=== PATIENT | female | born 1955 | race Caucasian/White ===

== ENCOUNTER 2025-11-06 20:34 | Inpatient (IN) | payer MEDICARE, OTHER ==
[~2025-11-06] VITALS: Ht 162.6 cm; Wt 99.9 kg
--- NOTE | 2025-11-06 20:51 | ECG ---
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
[2025-11-06 22:32] LABS: Nucleated Red Blood Cells % 0.1 %
[2025-11-06 22:34] LABS: Hematocrit 41.1 % (36.0-46.0); Hemoglobin 14.1 g/dL (12.2-16.2); Mean Corpuscular Hemoglobin 33.3 pg (28.0-32.0); Mean Corpuscular Volume 97.0 fL (80.0-100.0)
[2025-11-06 22:48] LABS: INR 1.03 (0.9-1.15); Partial Thromboplastin Time 22.8 SEC (24.5-34.5); Prothrombin Time 10.9 sec (9.3-11.8)
[2025-11-06 23:06] LABS: Alanine Aminotransferase 29 U/L (7-40); Albumin 4.2 g/dL (3.2-4.8); Alkaline Phosphatase 82 U/L (46-116); Anion Gap 9 (5-15); BUN/Creatinine Ratio 14.1 (10.0-20.0); Bilirubin, Total 0.4 mg/dL (0.2-1.0); Blood Urea Nitrogen 13 mg/dL (9-23); Calcium 9.7 mg/dL (8.7-10.4); Carbon Dioxide 26 mmol/L (20-31); Glucose 97 mg/dL (74-106); Magnesium 2.1 mg/dL (1.6-2.6); Potassium 4.1 mmol/L (3.5-5.1); Sodium 144 mmol/L (136-145); Total Protein 7.1 g/dL (5.7-8.2)
--- NOTE | 2025-11-06 23:10 | DVH ---
CT STROKE CTH INDICATION: Right lower extremity weakness EXAM DATE: 11/06/2025 10:17 PM COMPARISON: None TECHNIQUE: CT of the head without intravenous contrast. RADIATION DOSE: CTDIvol: 55.68 mGy, DLP: 986.02 mGy*cm FINDINGS: There is no evidence of acute intracranial hemorrhage, extra-axial collection, mass effect, midline shift, herniation or hydrocephalus. The ventricles, sulci and cisterns are age appropriate. The malik-white differentiation is intact. The visualized paranasal sinuses and mastoid air cells are clear. There is no evidence of skull fracture. The surrounding soft tissues and osseous structures are unremarkable. IMPRESSION: No evidence of acute intracranial hemorrhage, mass effect, hydrocephalus or skull fracture.
[2025-11-06 23:14] LABS: Chloride 109 mmol/L (98-107)
--- NOTE | 2025-11-06 23:24 | DVH ---
Right Lower Extremity Arterial Duplex CLINICAL HISTORY: loss of sensation, cold right foot COMPARISON: None TECHNIQUE: Duplex Doppler evaluation including color Doppler and spectral/pulsed waveform analysis of the right lower extremity arteries was performed. FINDINGS: RIGHT: Peak systolic velocities are as follows: TANK CAR CLEANER 81 cm/s Deep femoral 57 cm/s SFA proximal 97 cm/s SFA mid-portion 92 cm/s SFA distal 91 cm/s Popliteal 66 cm/s Posterior tibial 73 cm/s Anterior tibial 62 cm/s Dorsalis pedis 62 cm/s The waveforms are triphasic with diastolic flow apart from the posterior tibial and distal dorsalis pedis which are biphasic. IMPRESSION: No hemodynamically significant stenosis based on peak systolic velocity criteria. REFERENCE VALUES, [facility] vascular Imaging Lab Criteria: Peak systolic velocity ranges (in cm/sec) are as follows: <150 cm/s - <20 % stenosis 150-200 cm/s - 20-49% stenosis 200-300 cm/s - 50-75% stenosis >300 cm/s -> 75% stenosis
--- NOTE | 2025-11-07 03:37 | ED.PDOC ---
History of Present Illness HPI Comments This is a 70 year-old female who presents to the ED via EMS with a chief complaint of loss of feeling in R lower extremity S/P fall at 0600 this morning. Patient reports feeling dizzy, when she fell, landed on both knees, and bent the right leg all the way backwards. Patient is unable to lift the R leg and unable to ambulate at this time. There are no further complaints or modifying factors, all vitals are stable. REVIEW OF SYSTEMS: General: No fever, no chills, or fatigue HEENT: No sore throat, no earache, no congestion, no neck pain. Cardiac: No chest pain. No palpitations. Lungs: No shortness of breath, no cough. GI: No nausea, no vomiting, no diarrhea, no constipation, no abdominal pain : No dysuria, frequency, or urgency. No hematuria. Musculoskeletal: (+) loss of feeling in R lower extremity. Skin: No rash, no itching. Neuro: No headache, no dizziness, no weakness (And as sated in HPI) PHYSICAL EXAM: General: Awake, alert and oriented. No acute distress. Skin: Skin in warm, dry and intact. Appropriate color for ethnicity. HEENT: The head is normocephalic and atraumatic. Conjunctivae are clear without exudates or hemorrhage. Sclera is non-icteric. Eyelids are normal in appearance without swelling or lesions. Oral mucosa is pink and moist Neck: The neck is supple with normal range of motion. No JVD. Cardiac: Heart rate and rhythm are normal. No murmurs, gallops, or rubs are auscultated. Respiratory: No signs of respiratory distress. Lung sounds are clear in all lobes bilaterally without rales, rhonchi, or wheezes. Abdominal: Abdomen is soft, non-tender without distention, guarding or rigidity. Bowel sounds are present and normoactive in all four quadrants. Extremities: R lower extremity weakness, sensation intact, R foot cool to tough, normal capillary refill Neurological: The patient is awake, alert and oriented to person, place, and time with normal speech. Speech is clear. There is no facial asymmetry. Psychiatric: Appropriate mood and affect. Good judgement and insight. Chief Complaint: Fall Injury Time Seen by MD: 21:00 Reviewed Notes: Medications, Allergies Allergies: Coded Allergies: [place] Oil (Verified Allergy, Unknown, 11/06/25) Avocado (Verified Allergy, Unknown, 11/06/25) Banana (Verified Allergy, Unknown, 11/06/25) Information Source: Patient Mode of Arrival: EMS Severity: Moderate Duration: Since onset Past Medical History PAST MEDICAL HISTORY: Denies Surgical History: Denies all surgeries PRESCHOOL ASSISTANT History: No Pertinent PRESCHOOL ASSISTANT History Social History Smoker: Non-Smoker Alcohol: Denies ETOH Use Drugs: Denies Drug Use Was a procedure done? Was a procedure done?: No EKG EKG : Pulse Rate (adult): 67 Cardiac Rhythm: NSR Comments Borderline prolonged [place] interval Left anterior fascicular block Low voltage, precordial leads Abnormal R-wave progression, early transition Differential Dx Considerations may include: Differential diagnoses considered include critical limb ischemia, CVA, spinal cord injury, nerve injury, cauda equina syndrome, other traumatic injury, other neurologic disorder, other. X-Ray, Labs, Meds, VS Vital Signs Date Time Temp Pulse Resp B/P (MAP) Pulse Ox O2 Delivery O2 Flow Rate FiO2 11/07/25 03:40 67 11/07/25 01:38 97.8 77 16 126/78 (94) 95 97.8 11/06/25 20:46 67 11/06/25 20:43 98.2 72 18 120/91 72 98.2 Lab Test 11/06/25 22:11 Range/Units White Blood Count 11.0 H 4.4-10.8 10^3/uL Red Blood Count 4.23 4.0-5.20 10^6/uL Hemoglobin 14.1 12.2-16.2 g/dL Hematocrit 41.1 36.0-46.0 % Mean Corpuscular Volume 97.0 80.0-100.0 fL Mean Corpuscular Hemoglobin 33.3 H 28.0-32.0 pg Mean Corpuscular Hemoglobin Concent 34.4 32.0-36.0 g/dL Red Cell Distribution Width 13.7 11.8-14.3 % Platelet Count 245 140-450 10^3/uL Mean Platelet Volume 7.5 6.9-10.8 fL Neutrophils (%) (Auto) 62.1 37.0-80.0 % Lymphocytes (%) (Auto) 25.9 10.0-50.0 % Monocytes (%) (Auto) 9.6 0.0-12.0 % Eosinophils (%) (Auto) 2.0 0.0-7.0 % Basophils (%) (Auto) 0.4 0.0-2.0 % Neutrophils # (Auto) 6.9 1.6-8.6 10 ^3/uL Lymphocytes # (Auto) 2.9 0.4-5.4 10 ^3/uL Monocytes # (Auto) 1.1 0-1.3 10 ^3/uL Eosinophils # (Auto) 0.2 0-0.8 10 ^3/uL Basophils # (Auto) 0 0-0.2 10 ^3/uL Nucleated Red Blood Cells 0.1 % Prothrombin Time 10.9 9.3-11.8 sec Prothrombin Time INR 1.03 0.9-1.15 Activated Partial Thromboplast Time 22.8 L 24.5-34.5 SEC Sodium Level 144 136-145 mmol/L Potassium Level 4.1 3.5-5.1 mmol/L Chloride Level 109 H 98-107 mmol/L Carbon Dioxide Level 26 20-31 mmol/L Anion Gap 9 5-15 Blood Urea Nitrogen 13 9-23 mg/dL Creatinine 0.92 0.550-1.02 mg/dL Glomerular Filtration Rate Calc 67 >90 mL/min BUN/Creatinine Ratio 14.1 10.0-20.0 Serum Glucose 97 74-106 mg/dL Calcium Level 9.7 8.7-10.4 mg/dL Magnesium Level 2.1 1.6-2.6 mg/dL Total Bilirubin 0.4 0.2-1.0 mg/dL Aspartate Amino Transferase (AST) 40 13-40 U/L Alanine Aminotransferase (ALT) 29 7-40 U/L Alkaline Phosphatase 82 46-116 U/L Troponin I High Sensitivity 6 </=34 ng/L B-Type Natriuretic Peptide 98.04 0-100 pg/mL Total Protein 7.1 5.7-8.2 g/dL Albumin 4.2 3.2-4.8 g/dL ORDERING PHYSICIAN: HILARY ROGERS MD PROCEDURE(s): CTH - STROKE CTH REASON: Right lower extremity weakness ORDER NUMBER(s): [id number], ACCESSION NUMBER(s): [id number] CT STROKE CTH INDICATION: Right lower extremity weakness EXAM DATE: 11/06/2025 10:17 PM COMPARISON: None TECHNIQUE: CT of the head without intravenous contrast. RADIATION DOSE: CTDIvol: 55.68 mGy, DLP: 986.02 mGy*cm FINDINGS: There is no evidence of acute intracranial hemorrhage, extra-axial collection, mass effect, midline shift, herniation or hydrocephalus. The ventricles, sulci and cisterns are age appropriate. The malik-white differentiation is intact. The visualized paranasal sinuses and mastoid air cells are clear. There is no evidence of skull fracture. The surrounding soft tissues and osseous structures are unremarkable. IMPRESSION: No evidence of acute intracranial hemorrhage, mass effect, hydrocephalus or skull fracture. RING PHYSICIAN: HILARY ROGERS MD PROCEDURE(s): RLEAD - Rt Low Ext Art Duplex REASON: loss of sensation, cold right foot ORDER NUMBER(s): [id number], ACCESSION NUMBER(s): [id number] Right Lower Extremity Arterial Duplex CLINICAL HISTORY: loss of sensation, cold right foot COMPARISON: None TECHNIQUE: Duplex Doppler evaluation including color Doppler and spectral/pulsed waveform analysis of the right lower extremity arteries was performed. 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 IMPRESSION: No hemodynamically significant stenosis based on peak systolic velocity criteria. REFERENCE VALUES, [facility] ([facility]) vascular Imaging Lab Criteria: Peak systolic velocity ranges (in cm/sec) are as follows: <150 cm/s - <20 % stenosis 150-200 cm/s - 20-49% stenosis 200-300 cm/s - 50-75% stenosis >300 cm/s -> 75% stenosis Time of 1ST Reevaluation: 03:37 Reevaluation 1ST: Unchanged Patient Education/Counseling: Other, Pt Unresponsive (Need for admission) Family Education/Counseling: No Family Present SEPSIS Sepsis Screen Date sepsis recognized/suspect: Nov 06, 2025 Time Sepsis recognized/suspect: 2046 Recent Procedure: No On Antibiotic Therapy: No Respiratory Rate >20: No Heart Rate >90: No Temp<36 C (96.8 F) or >38.3 C: No SBP <90 or MAP <65 mmHG: No New Acute Mental Status Change: No Is the patient on CPAP, BIPAP,: No Physician Orders Vital Signs .PER UNIT PROTOCOL (11/06/25 21:53) Vp Software Engineering (11/06/25 21:53) Accurate Weight In Kg (11/06/25 21:53) Electrocardigram (11/06/25 21:53) Accucheck (11/06/25 21:53) Ct Head Cva (11/06/25 21:53) * Neurology Consult (11/06/25 21:53) 2 Large Bore Ivs (20mg Or Larg (11/06/25 21:53) Neuro Checks Per Unit Protocol (11/06/25 21:53) Rt Low Ext Art Duplex (11/06/25 22:00) Vital Signs Date Time Temp Pulse Resp B/P (MAP) Pulse Ox O2 Delivery O2 Flow Rate FiO2 11/07/25 03:40 67 11/07/25 01:38 97.8 77 16 126/78 (94) 95 97.8 11/06/25 20:46 67 11/06/25 20:43 98.2 72 18 120/91 72 98.2 Laboratory Tests Test 11/06/25 22:11 White Blood Count 11.0 10^3/uL (4.4-10.8) H Departure 1 Departure Time of Disposition: 02:00 Impression: Primary Impression: Right leg weakness Disposition: ADMITTED INPATIENT Condition: Stable Comments 70-year-old female with significant right lower extremity weakness with preservation of sensation onset 6:00 a.m. in the morning. No other neuro deficit CT head negative for acute CVA or bleed. Arterial Doppler right lower extremity negative for hemodynamically significant stenosis. Patient admitted to hospitalist service for further treatment, evaluation and monitoring. Critical Care Note Critical Care Time?: No Stability Stability form required: No Heart Score Heart Score: Heart Score Response (Comments) Value History N/A 0 EKG N/A 0 Age N/A 0 Risk Factors N/A 0 Troponin N/A 0 Total 0 I personally scribed for HILARY ROGERS MD ([email or web address]) on 11/07/25 at 03:37. Electronically submitted by Rolanda Torres ([email or web address]). I personally scribed for HILARY ROGERS MD ([email or web address]) on 11/07/25 at 03:40. Electronically submitted by Rolanda Torres (Analiza). I personally scribed for HILARY ROGERS MD ([email or web address]) on 11/07/25 at 03:47. Electronically submitted by Rolanda Torres ([email or web address]). HILARY ROGERS MD Nov 07, 2025 03:37
--- NOTE | 2025-11-07 05:38 | DVHHPRES ---
History of Present Illness Resident Creating Document: KARI BRICE RESIDENT History of Present Illness Patient is a 70-year-old female with past medical history of hypertension, hyperlipidemia, anxiety, essential tremor who came to the ED status post fall at 6:00 a.m. in the morning. patient states that she woke up in the morning got out of bed and as soon as she got up she felt dizzy and fell down on her knees, tried to get up but had right leg weakness, numbness, pain which was 10/10 in intensity, in her right knee. Patient denies any fever, chills, nausea, vomiting, diarrhea. Patient denies any head trauma, loss of consciousness. PMHx:hypertension, hyperlipidemia, anxiety, essential tremor PSHx: Right ankle surgery Family history: reviewed, noncontributory Social history: ex-smoker, drinks occasionally, denies drug use Home medication: losartan, venlafaxine, atorvastatin, gabapentin, propranolol Allergic history: denies PCP: Dr. Gordillo Patient seen in the [facility]. Patient at this time complains of 7/10 right knee pain. Patient states that she has numbness in the right ankle and foot. Review of Systems Constitutional: No: Fever, Chills, Sweats, Weakness, Malaise, Other Eyes: No: Pain, Vision change, Conjunctivae inflammation, Eyelid inflammation, Other, Redness ENT: No: Ear pain, Ear discharge, Nose pain, Nose discharge, Nose congestion, Mouth pain, Mouth swelling, Throat pain, Throat swelling, Other Respiratory: No: Cough, Dry, Shortness of breath, SOB with excertion, Wheezing, Hemoptysis, Pleuritic Pain, Sputum, Wheezing, Other Cardiovascular: No: Chest Pain, Palpitations, Orthopnea, Paroxysmal Noc. Dyspnea, Edema, Lt Headedness, Other Gastrointestinal: No: Nausea, Vomiting, Abdominal Pain, Diarrhea, Constipation, Melena, Hematochezia, Other Genitourinary: No Dysuria, No Frequency, No Incontinence, No Hematuria, No Retention, No Other Musculoskeletal: leg pain, foot pain; No: other, neck pain, shoulder pain, arm pain, back pain, hand pain Skin: No: Rash, Lesions, Jaundice, Bruising, Other Neurological: Weakness, Numbness Allergies: Coded Allergies: [place] Oil (Verified Allergy, Unknown, 11/06/25) Avocado (Verified Allergy, Unknown, 11/06/25) Banana (Verified Allergy, Unknown, 11/06/25) Exam Vital Signs Vital Signs Date Time Temp Pulse Resp B/P (MAP) Pulse Ox O2 Delivery O2 Flow Rate FiO2 11/07/25 03:40 67 11/07/25 01:38 97.8 16 126/78 (94) 95 97.8 Exam General: Patient alert and oriented in person, place and time. Patient following commands. In moderate distress HEENT: Normocephalic, atraumatic, moist mucous membranes Respiratory/pulmonary: Clear lungs bilaterally, vesicular murmurs present in almost all lung stone, no associated crackles or wheezes. Cardiovascular: Normal heart sounds S1 and S2 with no associated murmurs Abdomen: Abdomen nondistended, there is no pain to palpation in any of the abdominal quadrants, no palpable masses. Extremities: right leg weakness, right foot numbness. Peripheral Pulses: 3+ Radial (R). 3+ Radial (L). 3+ Dorsalis pedis (R). 3+ Dorsalis pedis(L) Skin: No rashes or pruritus, there is no sacral edema present at this time. Neurological: Intact cranial nerves with no focal neurologic deficits Labs/Xrays Labs Test 11/06/25 22:11 Range/Units White Blood Count 11.0 H 4.4-10.8 10^3/uL Red Blood Count 4.23 4.0-5.20 10^6/uL Hemoglobin 14.1 12.2-16.2 g/dL Hematocrit 41.1 36.0-46.0 % Mean Corpuscular Volume 97.0 80.0-100.0 fL Mean Corpuscular Hemoglobin 33.3 H 28.0-32.0 pg Mean Corpuscular Hemoglobin Concent 34.4 32.0-36.0 g/dL Red Cell Distribution Width 13.7 11.8-14.3 % Platelet Count 245 140-450 10^3/uL Mean Platelet Volume 7.5 6.9-10.8 fL Neutrophils (%) (Auto) 62.1 37.0-80.0 % Lymphocytes (%) (Auto) 25.9 10.0-50.0 % Monocytes (%) (Auto) 9.6 0.0-12.0 % Eosinophils (%) (Auto) 2.0 0.0-7.0 % Basophils (%) (Auto) 0.4 0.0-2.0 % Neutrophils # (Auto) 6.9 1.6-8.6 10 ^3/uL Lymphocytes # (Auto) 2.9 0.4-5.4 10 ^3/uL Monocytes # (Auto) 1.1 0-1.3 10 ^3/uL Eosinophils # (Auto) 0.2 0-0.8 10 ^3/uL Basophils # (Auto) 0 0-0.2 10 ^3/uL Nucleated Red Blood Cells 0.1 % Prothrombin Time 10.9 9.3-11.8 sec Prothrombin Time INR 1.03 0.9-1.15 Activated Partial Thromboplast Time 22.8 L 24.5-34.5 SEC Sodium Level 144 136-145 mmol/L Potassium Level 4.1 3.5-5.1 mmol/L Chloride Level 109 H 98-107 mmol/L Carbon Dioxide Level 26 20-31 mmol/L Anion Gap 9 5-15 Blood Urea Nitrogen 13 9-23 mg/dL Creatinine 0.92 0.550-1.02 mg/dL Glomerular Filtration Rate Calc 67 >90 mL/min BUN/Creatinine Ratio 14.1 10.0-20.0 Serum Glucose 97 74-106 mg/dL Calcium Level 9.7 8.7-10.4 mg/dL Magnesium Level 2.1 1.6-2.6 mg/dL Total Bilirubin 0.4 0.2-1.0 mg/dL Aspartate Amino Transferase (AST) 40 13-40 U/L Alanine Aminotransferase (ALT) 29 7-40 U/L Alkaline Phosphatase 82 46-116 U/L Troponin I High Sensitivity 6 </=34 ng/L B-Type Natriuretic Peptide 98.04 0-100 pg/mL Total Protein 7.1 5.7-8.2 g/dL Albumin 4.2 3.2-4.8 g/dL SEPSIS Sepsis Screen Date sepsis recognized/suspect: Nov 06, 2025 Time Sepsis recognized/suspect: 2046 Recent Procedure: No On Antibiotic Therapy: No Respiratory Rate >20: No Heart Rate >90: No Temp<36 C (96.8 F) or >38.3 C: No SBP <90 or MAP <65 mmHG: No New Acute Mental Status Change: No Is the patient on CPAP, BIPAP,: No Physician Orders Vital Signs .PER UNIT PROTOCOL (11/06/25 21:53) General Helper (11/06/25 21:53) Accurate Weight In Kg (11/06/25 21:53) Electrocardigram (11/06/25 21:53) Accucheck (11/06/25 21:53) Ct Head Cva (11/06/25 21:53) * Neurology Consult (11/06/25 21:53) 2 Large Bore Ivs (20mg Or Larg (11/06/25 21:53) Neuro Checks Per Unit Protocol (11/06/25 21:53) Rt Low Ext Art Duplex (11/06/25 22:00) Angio Head/Neck (11/07/25 04:10) Vital Signs Date Time Temp Pulse Resp B/P (MAP) Pulse Ox O2 Delivery O2 Flow Rate FiO2 11/07/25 03:40 67 11/07/25 01:38 97.8 77 16 126/78 (94) 95 97.8 Laboratory Tests Test 11/06/25 22:11 White Blood Count 11.0 10^3/uL (4.4-10.8) H Assessment/Plan Assessment/Plan Presyncope likely due to orthostatic hypotension Status post mechanical fall Right extremity weakness, right foot numbness Rule out stroke CT angio neck Head CT showed no acute abnormality Arterial duplex showed normal flow Check right knee x-ray Check echo Orthostatic vitals Neurology consult placed Pain management Hypertension Continue home meds Hyperlipidemia Atorvastatin Anxiety/depression Continue home meds Essential tremor Continue propranolol Obesity BMI 35.9 Patient counseled on diet, exercise, lifestyle modification for 18 minutes DVT prophylaxis: Lovenox Goals of care addressed with the patient for more than 27 minutes: Full code status Case discussed with Dr. Kwong , patient and nurse attestation pt found to have PE, started on anticoag, POCUS done, in chart Plan discussed with: Patient Visit Coding STANDARD RES Billing Provider: CAROLINE KWONG MD Date of Service if different f: Nov 07, 2025 Common Visit Codes: [id number] CARE 30-74 MIN (crit care time 50 minutes) KARI BRICE Nov 07, 2025 05:38 CAROLINE KWONG MD Nov 07, 2025 14:51
[2025-11-07] MEDS: MORPHINE SULFATE INJ 2 MG/ml SYRG IV ONE (06:00)
[2025-11-07] MEDS: ENOXAPARIN SOD 40 MG/0.4 ML SYRINGE SC SCH (06:01)
[2025-11-07] MEDS: MORPHINE SULFATE 4 MG/ML SYR/VIAL ONE (06:01)
[2025-11-07] MEDS: IOHEXOL 350 MG/ML 100ML IJ ONE (06:15)
[2025-11-07 07:21] LABS: Chloride 105 mmol/L (98-107); Potassium 4.2 mmol/L (3.5-5.1); Sodium 140 mmol/L (136-145)
[2025-11-07 07:22] LABS: Anion Gap 10 (5-15); Carbon Dioxide 25 mmol/L (20-31)
[2025-11-07 07:23] LABS: Calcium 9.2 mg/dL (8.7-10.4)
[2025-11-07 07:28] LABS: BUN/Creatinine Ratio 28.3 (10.0-20.0); Blood Urea Nitrogen 26 mg/dL (9-23); Glucose 105 mg/dL (74-106); Hematocrit 41.4 % (36.0-46.0); Hemoglobin 14.1 g/dL (12.2-16.2); Mean Corpuscular Hemoglobin 33.3 pg (28.0-32.0); Mean Corpuscular Volume 97.8 fL (80.0-100.0); Nucleated Red Blood Cells % 0.1 %
--- NOTE | 2025-11-07 07:33 | DVH ---
CLINICAL INFORMATION: Right lower extremity weakness. TECHNIQUE: Axial CTA images of the head and neck were obtained after the uneventful administration of 100 mL Omnipaque 350 IV contrast. Coronal and sagittal reformatted images and MIP images were obtained, reviewed, and stored. Measurements of carotid stenosis are made per NASCET criteria. All CT scans at this medical facility are performed using dose modulation techniques as appropriate to a performed exam including the following: Automated exposure control was utilized; adjustment of the MA and/or KV according to patient size; and use of iterative reconstruction technique. CTDIvol = 25.88 mGy DLP = 846.48 mGy-cm COMPARISON: None FINDINGS: CTA HEAD: Posterior cerebral arteries, basilar artery, and intracranial segments of the distal vertebral arteries are normal in caliber and course with no evidence of aneurysm, large vessel occlusion, significant stenosis, or vascular malformation. The anterior and middle cerebral arteries and intracranial segments of the distal internal carotid arteries are normal in caliber and course with no evidence of aneurysm, large vessel occlusion, significant stenosis, or vascular malformation. CTA NECK: Normal configuration of the aortic arch with patent origins of the brachiocephalic artery, left common carotid artery, and left subclavian artery. Subclavian arteries are patent with no significant stenosis. Mild calcified plaque at the right carotid bifurcation without significant stenosis. The bilateral common carotid, internal carotid, and external carotid arteries are otherwise patent with no significant stenosis or evidence of dissection. Vertebral arteries are patent with no significant stenosis or evidence of dissection. The main pulmonary artery and right and left pulmonary arteries are visualized within the [id number] of the exam. There are filling defects at the distal aspects of the right main pulmonary artery and visualized portions of the proximal lobar branches and in the left interlobar artery extending into the left lower lobe and lingular branches as well as in the left upper lobar pulmonary artery. Degenerative disc disease throughout the cervical spine with multilevel moderate to severe disc space narrowing, endplate sclerosis, and endplate spurring. IMPRESSION: 1. CTA head demonstrates no evidence of large vessel occlusion, aneurysm, or significant stenosis. 2. CTA neck demonstrates no evidence of carotid or vertebral dissection or significant stenosis. 3. Visualized portions of the pulmonary arteries demonstrate acute pulmonary bilateral pulmonary emboli involving the distal right main pulmonary artery and extending into the visualized proximal lobar branches and in the left interlobar artery extending into the lingular and lower lobar branches, as well as pulmonary emboli in the visualized portions of the left upper lobar pulmonary artery. Unable to evaluate for right heart strain within the field of view of this exam. 4. Additional findings as detailed above. The [facility] radiology call center was contacted to facilitate reporting of the critical finding of bilateral pulmonary emboli at 9:30 a.m. FRAME POLISHER on 11/07/2025. The report will be submitted pending discussion of the critical findings with the ordering physician.
[2025-11-07 08:00] VITALS: PULSE 87; RESP 17; O2SAT 97
--- NOTE | 2025-11-07 09:20 | DVH ---
EXAM: XY R KNEE 2V XRAY CLINICAL INDICATION: s/p fall TECHNIQUE: XY R KNEE 2V XRAY COMPARISON: None FINDINGS/IMPRESSION: There is no evidence of acute fracture or dislocation. Advanced right knee authorities. The alignment is anatomical. There is no radiopaque foreign body.
--- NOTE | 2025-11-07 09:45 | DVHINCON2 ---
Date of service: Nov 07, [address] Solano Reason for Consultation Right lower extremity weakness History of Present Illness Ms. Jackson is a 70 years old right-handed female with a history of dyslipidemia, obesity, she came to the [facility] on 11/06/2025 with a chief complaint of right leg weakness. At this time, she is alert and fully oriented, she provided the following history When she woke up flush tester on 10/27/25 for bathroom, she fell down when she was trying to get off bed, and noticed that she could not move the right leg at all, she also had pain in the right leg, mild pain in the right arm (she suspected secondary to fall). Otherwise she reports no chest pain, headache, vision changes or confusion In the hospital, her CTA head and neck showed evidence of pulmonary emboli She snores, but not loud, her sleep is refreshing, she denies excessive daytime sleepiness or fatigue For three months, she has left-handed tremor when she is eating or working with a hand, she had seen a neurologist, and she was given propranolol with good results WBC/HB/PLT/MCV, 11/07/2025: 12.4/14.1/237/97.8 BMP 11/06/2025: Unremarkable Liver function tests, 11/06/2025: Unremarkable Extremity venous study, 11/06/2025: No hemodynamically significant stenosis based on peak systolic velocity criteria. CT head, 11/06/2025: No evidence of acute intracranial hemorrhage, mass effect, hydrocephalus or skull fracture CTA head, neck, 11/07/2025: 1. CTA head demonstrates no evidence of large vessel occlusion, aneurysm, or significant stenosis. 2. CTA neck demonstrates no evidence of carotid or vertebral dissection or significant stenosis. 3. Visualized portions of the pulmonary arteries demonstrate acute pulmonary bilateral pulmonary emboli involving the distal right main pulmonary artery and extending into the visualized proximal lobar branches and in the left interlobar artery extending into the lingular and lower lobar branches, as well as pulmonary emboli in the visualized portions of the left upper lobar pulmonary artery. Unable to evaluate for right heart strain within the field of view of this exam. 4. Additional findings as detailed above Past Medical History Dyslipidemia, obesity Past Surgical History , left ankle fracture repair Family History Hypertension, breast cancer, multiple sclerosis Social History She was a tobacco smoker, but denies a history of drug/alcohol abuse Allergies: Coded Allergies: [place] Oil (Verified Allergy, Unknown, 11/06/25) Avocado (Verified Allergy, Unknown, 11/06/25) Banana (Verified Allergy, Unknown, 11/06/25) Current Medications Current Medications Medications (Trade) Dose Ordered Sig/Pao Route PRN Reason Start Time Stop Time Status Last Admin Acetaminophen (Tylenol Tablet) 650 mg Q6HP PRN PO PAIN SCALE 1-3 OR TEMP>100.4 11/07/25 05:45 Enoxaparin Sodium (Lovenox) 40 mg DAILY SC 11/07/25 05:45 11/07/25 08:42 DC 11/07/25 06:01 Acetaminophen/ Hydrocodone Bitart ([place] 5/325MG Tab) 1 tab Q6HPRN PRN PO MODERATE PAIN (4-6 PAIN SCALE) 11/07/25 06:45 Acetaminophen (Tylenol Tablet) 650 mg Q6HR PO 11/07/25 12:00 Future Hold Heparin Sodium/ Dextrose 250 ml @ 20 mls/hr [id number] IV 11/07/25 16:00 11/07/25 09:11 DC Enoxaparin Sodium (Lovenox) 100 mg Q12HR SC 11/07/25 22:00 Review of Systems As above, the other systems are negative Vital Signs Vital Signs Date Time Temp Pulse Resp B/P (MAP) Pulse Ox O2 Delivery O2 Flow Rate FiO2 11/07/25 09:05 87 17 116/72 11/07/25 08:00 97 Nasal Cannula* 4 36 11/07/25 05:57 97.8 97.8 Physical Exam GENERAL EXAM: General: the patient is well developed and nourished. No acute distress. HEENT: Normocephalic, neck is supple, no carotid bruits. No mass. RESPIRATORY: Normal respiratory effort with symmetrical lung expansion. Lungs clear to auscultation. CARDIOVASCULAR: Regular rate and rhythm with no murmurs. S1, S2. ABDOMEN: Soft, nontender, normal bowel sound MUSCULOSKELETAL EXAM: Mild tenderness to palpation in the low back NEUROLOGICAL: MENTAL STATUS: Awake and alert. Oriented to person, place, time and general circumstances. Able to give personal history. SPEECH, LANGUAGE, HIGHER CORTICAL FUNCTION: no aphasia or dysathria. CRANIAL NERVES: #2: Intact visual stone to confrontation. The optic discs were sharp. #3,4,6: Pupils are equal, round and reactive. EOMs full and conjugate. No nystagmus. #5: Facial sensation intact in all three divisions bilaterally. Mandibular strength intact. #7: Facial muscles symmetrical and strength intact. #8: Hearing grossly normal to voice. #9,10: Uvula and soft palate rise in the midline. Swallow and voice are normal. #11: Trapezius and sternomastoid strength intact bilaterally. #12: Tongue midline. No fasciculations or atrophy. SENSATION: Sensation to touch and pinprick is diminished below right L1 and L2 dermatomes MOTOR: Normal tone in the upper and lower extremity. Normal muscle bulk. No fasciculations. No abnormal movements or posturing. Muscle strength of the major groups in the upper extremities is 5/5. Muscle strength of the major groups in the lower extremities: Left: 5/5, right: 1-2/5. REFLEXES: Deep tendon reflexes normal and symmetrical. No pathological reflexe s. CEREBELLAR/COORDINATION: Finger to nose and heel to ayers are normal bilaterally. GAIT/STATION: deferred. Labs/Diagnostic Data Labs Test 11/07/25 06:58 11/06/25 22:11 Range/Units White Blood Count 12.4 H 4.4-10.8 10^3/uL Red Blood Count 4.24 4.0-5.20 10^6/uL Hemoglobin 14.1 12.2-16.2 g/dL Hematocrit 41.4 36.0-46.0 % Mean Corpuscular Volume 97.8 80.0-100.0 fL Mean Corpuscular Hemoglobin 33.3 H 28.0-32.0 pg Mean Corpuscular Hemoglobin Concent 34.1 32.0-36.0 g/dL Red Cell Distribution Width 14.3 11.8-14.3 % Platelet Count 237 140-450 10^3/uL Mean Platelet Volume 7.6 6.9-10.8 fL Neutrophils (%) (Auto) 63.4 37.0-80.0 % Lymphocytes (%) (Auto) 24.6 10.0-50.0 % Monocytes (%) (Auto) 9.6 0.0-12.0 % Eosinophils (%) (Auto) 1.9 0.0-7.0 % Basophils (%) (Auto) 0.5 0.0-2.0 % Neutrophils # (Auto) 7.9 1.6-8.6 10 ^3/uL Lymphocytes # (Auto) 3.1 0.4-5.4 10 ^3/uL Monocytes # (Auto) 1.2 0-1.3 10 ^3/uL Eosinophils # (Auto) 0.2 0-0.8 10 ^3/uL Basophils # (Auto) 0.1 0-0.2 10 ^3/uL Nucleated Red Blood Cells 0.1 % Sodium Level 140 136-145 mmol/L Potassium Level 4.2 3.5-5.1 mmol/L Chloride Level 105 98-107 mmol/L Carbon Dioxide Level 25 20-31 mmol/L Anion Gap 10 5-15 Blood Urea Nitrogen 26 #H 9-23 mg/dL Creatinine 0.92 0.550-1.02 mg/dL Glomerular Filtration Rate Calc 67 >90 mL/min BUN/Creatinine Ratio 28.3 H 10.0-20.0 Serum Glucose 105 74-106 mg/dL Calcium Level 9.2 8.7-10.4 mg/dL Magnesium Level 2.0 1.6-2.6 mg/dL Prothrombin Time 10.9 9.3-11.8 sec Prothrombin Time INR 1.03 0.9-1.15 Activated Partial Thromboplast Time 22.8 L 24.5-34.5 SEC Total Bilirubin 0.4 0.2-1.0 mg/dL Aspartate Amino Transferase (AST) 40 13-40 U/L Alanine Aminotransferase (ALT) 29 7-40 U/L Alkaline Phosphatase 82 46-116 U/L Troponin I High Sensitivity 6 </=34 ng/L B-Type Natriuretic Peptide 98.04 0-100 pg/mL Total Protein 7.1 5.7-8.2 g/dL Albumin 4.2 3.2-4.8 g/dL Assessment Acute right leg weakness, numbness/sensory loss Lumbar spine/thoracic spine myelopathy Acute stroke Obesity Sleep-related breathing disorder Essential tremors Plan/Recommendation Monitoring Supportive treatment Telemetry Lipid profile UDS MR brain MRI lumbar spine, covering up to T10 (talked to davy) Carotid Doppler Echocardiogram Anticoagulation treatment/Lovenox 100 mg subQ b.i.d. Lipitor 20 mg daily Propranolol 60 mg daily Address her sleep-related breathing disorder as outpatientpro More recommendation per clinical course Prognosis: Poor This medical document was created using an electronic medical record system with [employer] computerized dictation system. Although this document has been carefully reviewed, there may still be some phonetic and typographical errors. These areas are purely typographical due to imperfections of the software programs, and do not reflect any compromise in the patient's medical care. Plan discussed with: Patient, Other CECI BARRY MD Nov 07, 2025 09:45
[2025-11-07] MEDS: ENOXAPARIN SOD 60 MG/0.6 ML SYRINGE SC ONE (09:57)
--- NOTE | 2025-11-07 10:11 | DVH ---
Bilateral lower extremity venous duplex CLINICAL HISTORY: Rule out DVT COMPARISON: None TECHNIQUE: Duplex doppler evaluation of the deep venous systems of both lower extremities from the common femoral veins to the popliteal veins including color doppler and spectral/pulsed waveform analysis was performed. FINDINGS: RIGHT SIDE: The common femoral vein demonstrates appropriate compressibility and waveform variability. There is compressibility/patency of the great saphenous vein at the proximal thigh. The femoral vein demonstrates appropriate compressibility and waveform variability. The deep femoral vein demonstrates appropriate compressibility and waveform variability. The popliteal vein demonstrates appropriate compressibility and waveform variability. 5.1 x 3.2 x 0.8 cm right manley cyst LEFT SIDE: The common femoral vein demonstrates appropriate compressibility and waveform variability. There is compressibility/patency of the great saphenous vein at the proximal thigh. The femoral vein demonstrates appropriate compressibility and waveform variability. The deep femoral vein demonstrates appropriate compressibility and waveform variability. The popliteal vein demonstrates appropriate compressibility and waveform variability. IMPRESSION: 1. No right or left femoropopliteal venous thrombosis. 2. Right manley cyst.
[2025-11-07] MEDS ORDERED: LORazepam 2MG/ML-1ML VIAL IV PRN (11:15)
[2025-11-07 11:35] LABS: Cholesterol 171 mg/dL (< 200); HDL Cholesterol 47 mg/dL (40-59)
[2025-11-07 11:36] LABS: Triglycerides 174 mg/dL (< 150)
--- NOTE | 2025-11-07 11:51 | DVHPNRES ---
Progress Note Date Seen: Nov 07, 2025 Resident Creating Document: DORIAN GRIFFIN RESIDENT Medical Necessity Reason Pt with a Central, PICC or Fol: No Subjective Review of Systems Ms. Jackson is a 70 year old female with PMHx of Anxiety, hypertension, hyperlipidemia, arthritis, essential tremors, and blood clot in left lower leg in 2016, who presented to [facility] with chief complaint of pain, weakness, and numbness of her right leg after a fall. The patient states she was getting out of bed yesterday morning when she got dizzy and fell landing on bilateral knees. She states she immediately had sharp right sided pain, 10/10 intensity, without aggravating or relieving factors associated with numbness and weakness rending her unable to stand up on her own. She denies head trauma, loss of consciousness, nausea, vomiting, palpitations, or chest pain. Due to persistence of weakness and pain, she presented to the ED for evaluation in the ED. On evaluation in the ED, she was afebrile, normocardic, normotensive, and saturating adequately on room air. 12 lead EKG shows sinus rhythm with possible anterior fascicular block. Initial labs are significant for mild leukocytosis and decreased aPTT. Head CT shows no acute intracranial findings. Lower extremity arterial US shows no hemodynamically significant stenosis. The patient was admitted for further work up and monitoring. On admission, CT angio of head and neck showed presence of bilateral pulmonary embolism for which she was started on therapeutic lovenox. PMHx: Anxiety, hypertension, hyperlipidemia, arthritis, essential tremors, blood clots, 3 early term miscarriages PSHx: Left ankle ORIF Allergies: [place] oil, avocado, banana Social history: Refers she smoked cigarettes for 15 years with cessation 15 years ago 11/07: The patient is seen at bedside. She is afebrile, normocardic, normotensive, saturating adequately on 3L NC. She reports mild sharp retrosternal chest pain with shortness of breath associated with exertion. Follow up labs show uptrending WBCs. She was seen by neurology who recommended MRI brain and spine. MRI brain is significant for small foci of acute ischemia within the high left parietal lobe. Anticardiolipin and lupus anticoagulant have been ordered to evaluate for possible underlying autoimmune conditions. Objective vital signs Vital Sign Date Time Temp Pulse Resp B/P (MAP) Pulse Ox O2 Delivery O2 Flow Rate FiO2 11/07/25 09:05 87 17 116/72 11/07/25 08:00 97 Nasal Cannula* 4 36 11/07/25 05:57 97.8 97.8 medications Current Medications Medications Dose Ordered Sig/Pao Route Start Time Stop Time Status Last Admin Dose Admin Acetaminophen 650 mg Q6HP PRN PO 11/07/25 05:45 Acetaminophen/ Hydrocodone Bitart 1 tab Q6HPRN PRN PO 11/07/25 06:45 Acetaminophen 650 mg Q6HR PO 11/07/25 12:00 Cancel Enoxaparin Sodium 100 mg Q12HR SC 11/07/25 22:00 Lorazepam 1 mg ONCE PRN IV 11/07/25 11:15 Atorvastatin Calcium 20 mg HS PO 11/07/25 22:00 Propranolol HCl 60 mg DAILY PO 11/08/25 10:00 Examination General: The patient alert and oriented in person place and time. Patient following commands HEENT: Normocephalic, atraumatic, normal reactive pupils, EOM intact, pink conjunctiva, pink moist mucous membrane Respiratory/pulmonary: Bilateral chest expansion, no pain on palpation of chest wall, clear lungs bilaterally, vesicular murmurs present in almost all lung stone, no associated crackles or wheezes. Cardiovascular: Normal RRR, normal S1 and S2, no murmurs Abdomen: Abdomen nondistended, normal bowel sounds, soft, there is no pain to palpation in any of the abdominal quadrants, no palpable masses. Extremities: No deformities, no edema is observed, painful to palpation of bilateral calves Skin: No rashes or pruritus, there is no sacral edema present at this time. Neurological: Intact cranial nerves, sensation and strength intact in upper extremities, sensation and strength intact in lower extremity, strength 2/5 in right lower extremity laboratory and microbiology Laboratory Tests 11/07/25 06:58 Test 11/07/25 06:58 Range/Units Serum Glucose 105 74-106 mg/dL Problem List/Assessment/Plan Problem List/Assessment/Plan Assessment and plan: Bilateral pulmonary embolism - CTA head and neck: Visualized portions of the pulmonary arteries demonstrate acute pulmonary bilateral pulmonary emboli involving the distal right main pulmonary artery and extending into the visualized proximal branches and in the left interlobar artery extending into the lingular and lower lobar branches as well as pulmonary embolism in the visualized portions of the left upper lobar pulmonary artery. - Therapeutic Lovenox - Supplemental O2 via NC - Echocardiogram has been done, pending report - POCUS: No right heart strain DVT ruled out - Bilateral lower extremity venous duplex US: No femoropopliteal deep vein thrombosis Acute ischemic stroke with right sided lower extremity weakness - Brain MRI: Foci of acute ischemia within the high left parietal lobe - Per neurology: Recommend supportive treatment, telemetry, MRI brain, MRI lumbar spine, carotid Doppler, echocardiogram, anticoagulation with Lovenox therapeutic dose, Lipitor 20 mg daily Severe neural foraminal stenosis - L spine MRI: Moderate lumbar degenerative disc disease, 4 mm anterolisthesis L4 upon L5, severe neural foraminal stenosis at L4 and L5 Hypertension - We will hold blood pressure medication at this time Hyperlipidemia - Atorvastatin 40 mg PO HS Anxiety/depression Essential tremor - Propranolol 60 mg PO daily Morbid obesity, BMI 40.1 kg/m2 DVT prophylaxis: Patient is on therapeutic lovenox GI prophylaxis: Not indicated Diet: Cardiac Goals of care discussed with the patient for over 37 minutes. FULL CODE Case discussed with Dr. Kwong Plan discussed with: Patient, Other (Nurse) Visit Coding STANDARD RES Billing Provider: CAROLINE KWONG MD Date of Service if different f: Nov 07, 2025 Common Visit Codes: [id number] INP/OBS CARE(HIGH) DORIAN GRIFFIN RESIDENT Nov 07, 2025 11:51 CAROLINE KWONG MD Nov 15, 2025 09:45
[2025-11-07] MEDS ORDERED: ACETAMINOPHEN 325 MG TAB PO SCH (12:00)
--- NOTE | 2025-11-07 12:40 | DVH ---
EXAMINATION: MRI BRAIN HEAD WO CONTRAST INDICATION: CVA COMPARISON: CT ANGIO HEAD/NECK on DOS: 11/07/25 TECHNIQUE: Multiplanar, multisequence magnetic resonance imaging of the brain was performed without the use of intravenous contrast. FINDINGS: Diffusion-weighted images demonstrate small foci of acute infarct within the high left parietal lobe. Punctate focus of acute ischemia within the left parietal lobe. There is periventricular/deep white matter T2/FLAIR hyperintensity which is nonspecific, but most commonly associated with chronic microvascular disease. Probable lipoma within the left quadrigeminal cistern. There are global involutional changes with compensatory prominence of the ventricles and sulci. Flow voids in the major intracranial vessels are maintained. Bilateral lens implants. Paranasal sinuses and mastoid air cells are clear. No abnormality of the visualized osseous structures and extracranial soft tissues. IMPRESSION: 1. Small foci of acute ischemia within the high left parietal lobe. 2. Age-related involutional changes. Chronic microvascular changes.
[2025-11-07] MEDS: ATORVASTATIN 20 MG TAB PO ONE (12:57)
--- NOTE | 2025-11-07 13:09 | DVH ---
PROCEDURE: MRI LUMBAR SPINE WO CONTRAST INDICATION: Myelopathy, COMPARISON: None TECHNIQUE: Multiplanar multisequence images of the the lumbar spine are obtained. FINDINGS: For the purpose of this examination, there are 5 lumbar vertebral body types counting from the lumbosacral junction. Lumbar vertebral body heights are maintained. Moderate multilevel disc space narrowing and desiccation. No abnormal marrow edema. There is 4 mm anterolisthesis of L4 upon L5. The conus terminates at the level of the L1 vertebral body level. T12-L1: Tiny disc protrusion. Mild facet and flavum hypertrophy. No spinal canal, neural foraminal stenosis. L1-2: Tiny disc protrusion. Mild facet and flavum hypertrophy. No spinal canal stenosis. Moderate left and mild right neural foraminal stenosis. L2-3: 2 mm disc protrusion. Mild facet and flavum hypertrophy. No spinal canal stenosis. Mild bilateral neural foraminal stenosis. L3-4: 2 mm disc protrusion. [id number] facet and flavum hypertrophy. No spinal canal stenosis. Mild bilateral neural foraminal stenosis. L4-5: 4 mm anterolisthesis L4 upon L5. Zblg-js-[id number] facet and flavum hypertrophy. No spinal canal stenosis. Severe bilateral neural foraminal stenosis. Small to moderate bilateral facet joint effusions, [id number]. L5-S1: 2 mm disc protrusion. Mild facet and flavum hypertrophy. No spinal canal stenosis. Gvmz-[id number] bilateral neural foraminal stenosis IMPRESSION: Moderate lumbar degenerative disc disease. 4 mm anterolisthesis L4 upon L5. Severe neural foraminal stenosis at L4-5. Kelr-wp-llpywdve neural foraminal stenosis of the remaining lumbar levels. No high-grade spinal canal stenosis.
[2025-11-07 13:55] VITALS: BP 145/66; PULSE 94; RESP 19; TEMP 97.8; O2SAT 92
--- NOTE | 2025-11-07 13:55 | DVH ---
CHEST RADIOGRAPH INDICATION: sob TECHNIQUE: Single frontal view of the chest was obtained COMPARISON: None FINDINGS: Lines and Tubes: None Lungs: No focal consolidation. Pleura: No effusion. No pneumothorax. Cardiomediastinal contours: Unremarkable Bones: No acute osseous abnormality. IMPRESSION: 1. No acute cardiopulmonary disease.
--- NOTE | 2025-11-07 14:27 | DVHNC2 ---
Other Procedure Procedure cardiac POCUS indication PE, active chest pain, r/o RHS technique: limited TTE findings: TAPSE 2.2cm, no RHS, no D sign, no mcconnel sign impression: no right heart strain Date of Service: Nov 07, 2025 Billing Provider: CAROLINE ZAMORA MD Common Visit Codes: PROCEDURE ONLY (10307-05) CAROLINE ZAMORA MD Nov 07, 2025 14:27
[2025-11-07] MEDS ORDERED: LEVO500T91 PO (14:38)
[2025-11-07] MEDS ORDERED: GABA-1250 PO (14:38)
--- NOTE | 2025-11-07 15:02 | DVH ---
Not to be read
[2025-11-07] MEDS ORDERED: HEPARIN DRIP/D5W 100UNITS/ML 250 ML IV SCH (16:00)
[2025-11-07] MEDS ORDERED: HEPARIN SODIUM (PORCINE) 5000 UNITS/ML 1ML VIAL IV ONE (16:00)
[2025-11-07 17:00] VITALS: BP 147/88; PULSE 87; RESP 18; TEMP 98.3; O2SAT 95
--- NOTE | 2025-11-07 17:22 | DVH ---
CLINICAL INDICATION: s/p fall TECHNIQUE: 3 radiographic views of the right foot were obtained. COMPARISON: None FINDINGS/IMPRESSION: Metallic toe ring on the right 3rd toe. No fractures or dislocations visible.
[2025-11-07 18:33] VITALS: BP_SYST 131; BP_SYST 148; BP_DIAS 77; BP_DIAS 84; PULSE 87; PULSE 88; RESP 17
--- NOTE | 2025-11-07 19:41 | ECG ---
[facility] Test Date: 2025-11-07 Test Time: 07:55:24 Pat Name: ELAINA MARIE Department: [facility] ED Patient ID: [facility]-[id number] Room: [facility]0T A Gender: F [employer]: MAMI : 1955 Requested By: MARGIE MORA Order Number: [id number] Reading MD: Alvin Bhatia Measurements Intervals Perry Rate: 94 P: 69 OH: 228 QRS: -64 QRSD: 99 T: 69 QT: 410 QTc: 513 Interpretive Statements Sinus rhythm Supraventricular bigeminy Prolonged OH interval Left anterior fascicular block Low voltage, precordial leads Consider anterior infarct Electronically Signed On 11-11-2025 15:20:59 PST by Alvin Bhatia Please click the below link to view image of tracing.
[2025-11-07 20:00] VITALS: PULSE 88; PULSE 96; RESP 18
[2025-11-07 21:00] VITALS: BP 159/70; PULSE 88; PULSE 98; RESP 18; TEMP 97.7; O2SAT 97
[2025-11-07 21:40] LABS: Urine Protein, UAD TRACE (Negative)
[2025-11-07 21:48] LABS: Opiate Scree,Urine Neg (NEGATIVE)
[2025-11-07] MEDS ORDERED: ATORVASTATIN 20 MG TAB PO SCH (22:00)
[2025-11-07] MEDS: ENOXAPARIN SOD 100 MG/1 ML SYRINGE SC SCH (22:04)
[2025-11-07] MEDS: HYDROcodone-ACET 5/325MG TAB PO PRN (22:05)
[2025-11-07 22:49] LABS: Amphetamine Screen, Urine Neg (NEGATIVE); Barbiturate Scree,Urine Neg (NEGATIVE); Benzodiazephine Screen, Urine Neg (NEGATIVE); Cannabinoid Screen, Urine Neg (NEGATIVE); Cocaine Screen, Urine Neg (NEGATIVE); Phencyclidine Screen, Urine Neg (NEGATIVE)
[2025-11-08] VITALS (8 sets, daily range): BP systolic 137–157; BP diastolic 53–90; PULSE 0–74; RESP 15–18; TEMP 97.4–98.1; O2SAT 95–98
[2025-11-08 06:22] LABS: Hematocrit 42.3 % (36.0-46.0); Hemoglobin 14.6 g/dL (12.2-16.2); Mean Corpuscular Hemoglobin 33.9 pg (28.0-32.0); Mean Corpuscular Volume 98.0 fL (80.0-100.0); Nucleated Red Blood Cells % 0.1 %
[2025-11-08 06:31] LABS: Alanine Aminotransferase 24 U/L (7-40); Albumin 3.8 g/dL (3.2-4.8); Alkaline Phosphatase 84 U/L (46-116); Anion Gap 12 (5-15); BUN/Creatinine Ratio 28.0 (10.0-20.0); Bilirubin, Total 0.7 mg/dL (0.2-1.0); Blood Urea Nitrogen 21 mg/dL (9-23); Calcium 9.3 mg/dL (8.7-10.4); Carbon Dioxide 25 mmol/L (20-31); Glucose 96 mg/dL (74-106); Potassium 3.8 mmol/L (3.5-5.1); Total Protein 6.3 g/dL (5.7-8.2)
[2025-11-08 06:37] LABS: Chloride 108 mmol/L (98-107); Sodium 145 mmol/L (136-145)
[2025-11-08] MEDS: PROPRANOLOL HCL 20 MG TAB PO SCH (09:24)
--- NOTE | 2025-11-08 14:31 | DVHINCON2 ---
Date Seen: Nov 08, 2025 Referring Physician MD Sebastián resident Reason for Consultation Acute CVA, YANICK evaluation History of Present Illness This is a 70-year-old female patient who presents to the emergency room with chief complaint of generalized weakness and fall at home. The patient reports that on the day of emergency room arrival, she was getting out of bed to use the restroom when suddenly her legs felt as if they gave out from under her. She denies any loss of consciousness or hitting her head. Imaging (Brain MRI) done at this facility revealed acute ischemia within high left parietal lobe. Cardiology has now been consulted for acute CVA for a YANICK evaluation. Initial twelve lead electrocardiogram reveals normal sinus rhythm with first-degree conduction delay and bigeminy PACs. She denies any cardiac symptoms. Significant past medical history includes hypertension, dyslipidemia, left lower extremity DVT in 2017, and morbid obesity. Past Medical History Past medical history reviewed. No other significant than mentioned above. Past Surgical History Hysterectomy Left foot surgery Family History: Cardiovascular disease G8 FATHER Malignant neoplasm of breast G8 MOTHER Family History Family history reviewed. Social History The patient has a 20 pack-year history, quit smoking approximately 15 years ago Denies illicit drug use Denies alcohol use Allergies: Coded Allergies: [place] Oil (Verified Allergy, Unknown, 11/06/25) Avocado (Verified Allergy, Unknown, 11/06/25) Banana (Verified Allergy, Unknown, 11/06/25) Home Meds Reported Medications Levofloxacin Hemihydrate (LEVOFLOXACIN) 500 Mg Tab, 500 MG PO DAILY, MG 11/07/25 Gabapentin (Gabapentin) 300 Mg Cap, 600 MG PO DAILY for 30 Days, MG 11/07/25 Home Meds Home medications reviewed. Current Medications Current Medications Medications (Trade) Dose Ordered Sig/Pao Route PRN Reason Start Time Stop Time Status Last Admin Heparin Sodium/ Dextrose 250 ml @ 20 mls/hr [id number] IV 11/07/25 16:00 11/07/25 09:11 DC Enoxaparin Sodium (Lovenox) 100 mg Q12HR SC 11/07/25 22:00 11/08/25 09:24 Atorvastatin Calcium (Lipitor) 20 mg HS PO 11/07/25 22:00 11/07/25 17:05 DC Propranolol HCl (Inderal Tablet) 60 mg DAILY PO 11/08/25 10:00 11/08/25 09:24 Atorvastatin Calcium (Lipitor) 40 mg HS PO 11/08/25 22:00 Review of Systems Constitutional: Generalized weakness Ears, Nose, & Throat: No symptom reported Eyes: No symptom reported Neurological: No symptoms reported Pulmonary/Respiratory: No symptoms reported Cardiovascular: No symptom reported Gastrointestinal: No symptom reported Genitourinary: No symptom reported Musculoskeletal: No symptom reported Skin: No symptom reported Psychiatric: No symptom reported Endocrine: No symptom reported Hematologic/Lymphatic: No symptom reported Vital Signs Vital Signs Date Time Temp Pulse Resp B/P (MAP) Pulse Ox O2 Delivery O2 Flow Rate FiO2 11/08/25 09:24 73 137/76 11/08/25 08:33 98.0 18 96 98.0 11/08/25 08:00 Room Air* 0 21 Physical Exam General Appearance: Cooperative. Morbidly obese Pulmonary/Respiratory: Clear, bilateral breaths sounds. Cardiovascular/Chest: Regular rate and rhythm. Peripheral Pulses: 2+ Radial (R). 2+ Radial (L). 2+ Pedal (R). 2+ Pedal (L) Abdominal Exam: Normal bowel sounds. Ankle Exam: Negative ankle edema Lower extremities: Negative lower extremity edema. Right lower extremity weakness noted. Neuro/Mental Status: A/OX4, coherent. Thoughts/Psych: Normal thought pattern. Appropriate mood and affect. Good judgment and insight. Appearance: No acute distress. Skin Exam: Normal inspection. Normal color. Warm and dry. Labs/Diagnostic Data Labs Test 11/08/25 04:40 11/07/25 21:30 11/07/25 12:48 11/07/25 10:24 Range/Units White Blood Count 10.4 4.4-10.8 10^3/uL Red Blood Count 4.32 4.0-5.20 10^6/uL Hemoglobin 14.6 12.2-16.2 g/dL Hematocrit 42.3 36.0-46.0 % Mean Corpuscular Volume 98.0 80.0-100.0 fL Mean Corpuscular Hemoglobin 33.9 H 28.0-32.0 pg Mean Corpuscular Hemoglobin Concent 34.6 32.0-36.0 g/dL Red Cell Distribution Width 13.7 11.8-14.3 % Platelet Count 167 140-450 10^3/uL Mean Platelet Volume 7.9 6.9-10.8 fL Neutrophils (%) (Auto) 57.2 37.0-80.0 % Lymphocytes (%) (Auto) 29.8 10.0-50.0 % Monocytes (%) (Auto) 10.8 0.0-12.0 % Eosinophils (%) (Auto) 1.7 0.0-7.0 % Basophils (%) (Auto) 0.5 0.0-2.0 % Neutrophils # (Auto) 5.9 1.6-8.6 10 ^3/uL Lymphocytes # (Auto) 3.1 0.4-5.4 10 ^3/uL Monocytes # (Auto) 1.1 0-1.3 10 ^3/uL Eosinophils # (Auto) 0.2 0-0.8 10 ^3/uL Basophils # (Auto) 0 0-0.2 10 ^3/uL Nucleated Red Blood Cells 0.1 % Sodium Level 145 # 136-145 mmol/L Potassium Level 3.8 3.5-5.1 mmol/L Chloride Level 108 H 98-107 mmol/L Carbon Dioxide Level 25 20-31 mmol/L Anion Gap 12 5-15 Blood Urea Nitrogen 21 9-23 mg/dL Creatinine 0.75 0.550-1.02 mg/dL Glomerular Filtration Rate Calc 86 >90 mL/min BUN/Creatinine Ratio 28.0 H 10.0-20.0 Serum Glucose 96 74-106 mg/dL Hemoglobin A1c 5.6 <5.7 % A1C Calcium Level 9.3 8.7-10.4 mg/dL Total Bilirubin 0.7 0.2-1.0 mg/dL Aspartate Amino Transferase (AST) 25 13-40 U/L Alanine Aminotransferase (ALT) 24 7-40 U/L Alkaline Phosphatase 84 46-116 U/L Total Protein 6.3 5.7-8.2 g/dL Albumin 3.8 3.2-4.8 g/dL Urine Color Yellow Yellow Urine Clarity Clear Clear Urine pH 6.0 5.0-9.0 Urine Specific [place] > 1.050 H 1.001-1.035 Urine Protein Trace H Negative Urine Ketones 1+ H Negative Urine Blood Negative Negative /uL Urine Nitrite Negative Negative Urine Bilirubin Negative Negative Urine Urobilinogen Normal Negative mg/dL Urine Leukocyte Esterase Negative Negative /uL Urine RBC 4 0 - 4 /hpf Urine Microscopic WBC 5 0-5 /HPF Urine Squamous Epithelial Cells Few <5 /hpf Urine Bacteria Few H None Seen /hpf Urine Mucus Few None Seen Urine Glucose Normal Normal mg/dL Urine Opiates Screen Neg NEGATIVE Urine Fentanyl Screen Neg NEGATIVE Urine Barbiturates Screen Neg NEGATIVE Urine Phencyclidine Screen Neg NEGATIVE Urine Amphetamines Screen Neg NEGATIVE Urine Benzodiazepines Screen Neg NEGATIVE Urine Cocaine Screen Neg NEGATIVE Urine Cannabinoids Screen Neg NEGATIVE Lactic Acid Level 1.4 0.4-2.0 mmol/L Test 11/07/25 06:58 11/06/25 22:11 Range/Units Magnesium Level 2.0 1.6-2.6 mg/dL Triglycerides Level 174 H < 150 mg/dL Cholesterol Level 171 < 200 mg/dL LDL Cholesterol 99 < 100 mg/dL HDL Cholesterol 47 40-59 mg/dL Prothrombin Time 10.9 9.3-11.8 sec Prothrombin Time INR 1.03 0.9-1.15 Activated Partial Thromboplast Time 22.8 L 24.5-34.5 SEC Troponin I High Sensitivity 6 </=34 ng/L B-Type Natriuretic Peptide 98.04 0-100 pg/mL Assessment Acute CVA, rule out cardiac etiology Rule out cardiac arrhythmia SVT Bigeminy PAC's Bilateral pulmonary emboli Hypertension Dyslipidemia History of left lower extremity DVT in 2017 Morbid obesity Plan/Recommendation We will continue with the following plan/recommendations (): Case reviewed and discussed with . We will proceed by obtaining a transthoracic echocardiogram with bubble study to evaluate for structural defects. Continue with therapeutic Lovenox. Continue with lipid-lowering agent. Patient noted to have episode of narrow complex tachycardia, in keeping with SVT on potline monitor. Patient back in normal sinus rhythm at time assessment. Continue with close cardiac speed operator for any other arrhythmias. Further recommendations for transesophageal echocardiogram per clinical course and progression. Thank you for allowing us to care for this patient. Please call with any questions or concerns. Critical care time spent: 44 minutes This medical document was created using an electronic medical record system with voice recognition software and computerized dictation system. Although this document has been carefully reviewed, there might still be some phonetic and typographical errors. Occasional wrong-word or ``sound-alike substitutions may have occurred due to the inherent limitations of voice recognition software. These areas are purely typographical due to imperfections of the software programs and do not reflect any compromise in the patient's medical care. Please read the chart carefully and recognize, using context, where these substitutions have occurred. Plan discussed with: Patient NYHA Physical activity limitations: NA Date of Service: Nov 08, 2025 Billing Provider: JAKI MOORE Cardiology Common Codes: 88283-[id number] INP/OBS CARE (High) Cardiology Consultation Codes: 55552-[id number] CONSULT <45MIN JAKI MOORE Nov 08, 2025 14:31
--- NOTE | 2025-11-08 14:36 | DVHSR ---
APPROVED REPORT EXAM: Two-dimensional and M-mode echocardiogram with Doppler and color Doppler. Blood Pressure: 149/63 mmHg INDICATION Rule out structural heart disease RISK FACTORS Height: 64, Weight: 209 DIMENSIONS LVDd 4.1 (3.8-5.7cm) LA (2D) 4.1 (1.9-4.0cm) Aortic Root 4.0 (2.0-3.7cm) LVDs 2.8 (2.5-4.0cm) LA (MM) (1.9-4.0cm) Aortic Cusp Exc 1.6 (1.5-2.0cm) EF (%) 60.0 (55-70%) Rt. Atrium 4.1 (1.9-4.0cm) Asc. Aorta cm Mitral Valve Mitral Mitral Stenosis E/A ratio 0.0 2D MVA cm2 Aortic Valve Aortic Valve Aortic Stenosis V1 0.96m/s AO Mean GR. 3mmHg V2 1.16m/s AO Peak GR. 5mmHg LVOT Diameter 1.9 (1.8-2.4cm) Doppler HEMA 2.35cm2 Pulmonic Valve V2 0.94m/s Tricuspid Valve TR Velocity 2.55m/s RVSP 34mmHg Other Information Technically limited study due to body habitus. Conclusion 1-Normal right and left ventricle systolic function with estimated ejection fraction of 60%. Normal LV wall motion 2-Biatrial dilatation 3-Trace tricuspid regurgitation 4-Mild aortic root dilatation diameter 4 cm
--- NOTE | 2025-11-08 17:31 | DVHSR ---
APPROVED REPORT EXAM: Two-dimensional and M-mode echocardiogram with Doppler, color Doppler and Bubble Study. INDICATION Structural Eval RISK FACTORS Height: 5'4", Weight: 228 DIMENSIONS LVDd 3.6 (3.8-5.7cm) LA (2D) (1.9-4.0cm) Aortic Root (2.0-3.7cm) LVDs 2.5 (2.5-4.0cm) LA (MM) (1.9-4.0cm) Aortic Cusp Exc (1.5-2.0cm) EF (%) 59.0 (55-70%) Rt. Atrium (1.9-4.0cm) Asc. Aorta cm IVSd 1.4 (0.7-1.1cm) RV (D) (1.8-2.4cm) Mitral Valve Mitral Mitral Stenosis E/A ratio 0.0 2D MVA cm2 Other Information Quality : Technically Limited Rhythm : Technically limited study due to body habitus. Conclusion Limited study 1-Normal left ventricular systolic function with estimated ejection fraction of 55-60%. Normal LV wall motion 2-Positive bubble study for interatrial right to left shunting suggestive of possible PFO, howevere, may consider YANICK for further evaluation if clinically correlated
--- NOTE | 2025-11-08 18:22 | DVHPNRES ---
Progress Note Date Seen: Nov 08, 2025 Resident Creating Document: DORIAN GRIFFIN RESIDENT Medical Necessity Reason Pt with a Central, PICC or Fol: No Subjective Review of Systems Ms. Jackson is a 70 year old female with PMHx of Anxiety, hypertension, hyperlipidemia, arthritis, essential tremors, and blood clot in left lower leg in 2017, who presented to [facility] with chief complaint of pain, weakness, and numbness of her right leg after a fall. The patient states she was getting out of bed yesterday morning when she got dizzy and fell landing on bilateral knees. She states she immediately had sharp right sided pain, 10/10 intensity, without aggravating or relieving factors associated with numbness and weakness rending her unable to stand up on her own. She denies head trauma, loss of consciousness, nausea, vomiting, palpitations, or chest pain. Due to persistence of weakness and pain, she presented to the ED for evaluation in the ED. On evaluation in the ED, she was afebrile, normocardic, normotensive, and saturating adequately on room air. 12 lead EKG shows sinus rhythm with possible anterior fascicular block. Initial labs are significant for mild leukocytosis and decreased aPTT. Head CT shows no acute intracranial findings. Lower extremity arterial US shows no hemodynamically significant stenosis. The patient was admitted for further work up and monitoring. On admission, CT angio of head and neck showed presence of bilateral pulmonary embolism for which she was started on therapeutic lovenox. She was evaluated by neurology who recommended MRI brain and spine. MRI brain was significant for small foci of acute ischemia within the high left parietal lobe. PMHx: Anxiety, hypertension, hyperlipidemia, arthritis, essential tremors, blood clots, 3 early term miscarriages PSHx: Left ankle ORIF Allergies: [place] oil, avocado, banana Social history: Refers she smoked cigarettes for 15 years with cessation 15 years ago 11/08/2025: Patient seen at bedside. Per nurse, overnight telemetry strip showed sinus tachycardia with heart rate in the 160s, on evaluation the patient states she had just received news that her pet had she was upset. Rate normalized to normal sinus rhythm within normal range afterwards. She states she is well, continues to have numbness and is unable to move right foot and calf. She is afebrile, normocardic, slightly hypertensive, saturating adequately on room air. Follow-up labs resolved leukocytosis. she was evaluated by Cardiology who did a repeat echocardiogram with bubble study significant for positive bubble study for intra-arterial [id number]-yg-come shunting suggestive of possible PFO. Pending cardiology's decision of whether they will go forward with a YANICK. Pending evaluation by Physical therapy. Objective vital signs Vital Sign Date Time Temp Pulse Resp B/P (MAP) Pulse Ox O2 Delivery O2 Flow Rate FiO2 11/08/25 17:00 97.8 63 18 142/74 (96) 95 97.8 11/08/25 08:00 Room Air* 0 21 Total Intake and Output 11/07/25 11/07/25 11/08/25 15:00 23:00 07:00 Intake Total 860 ml 600 ml Output Total 400 ml Balance 460 ml 600 ml medications Current Medications Medications Dose Ordered Sig/Pao Route Start Time Stop Time Status Last Admin Dose Admin Acetaminophen 650 mg Q6HP PRN PO 11/07/25 05:45 Acetaminophen/ Hydrocodone Bitart 1 tab Q6HPRN PRN PO 11/07/25 06:45 11/08/25 17:13 1 TAB Acetaminophen 650 mg Q6HR PO 11/07/25 12:00 Cancel Enoxaparin Sodium 100 mg Q12HR SC 11/07/25 22:00 11/08/25 09:24 100 MG Lorazepam 1 mg ONCE PRN IV 11/07/25 11:15 Propranolol HCl 60 mg DAILY PO 11/08/25 10:00 11/08/25 09:24 60 MG Atorvastatin Calcium 40 mg HS PO 11/08/25 22:00 Examination General: The patient alert and oriented in person place and time. Patient following commands HEENT: Normocephalic, atraumatic, normal reactive pupils, EOM intact, pink conjunctiva, pink moist mucous membrane Respiratory/pulmonary: Bilateral chest expansion, no pain on palpation of chest wall, clear lungs bilaterally, vesicular murmurs present in almost all lung stone, no associated crackles or wheezes. Cardiovascular: Normal RRR, normal S1 and S2, no murmurs Abdomen: Abdomen nondistended, normal bowel sounds, soft, there is no pain to palpation in any of the abdominal quadrants, no palpable masses. Extremities: No deformities, no edema is observed, painful to palpation of bilateral calves Skin: No rashes or pruritus, there is no sacral edema present at this time. Neurological: Intact cranial nerves, sensation and strength intact in upper extremities, sensation and strength intact in lower extremity, strength 1/5 in right foot and calf, sensation intact in right calf, sensation decreased in right foot laboratory and microbiology Laboratory Tests 11/08/25 04:40 Test 11/08/25 04:40 Range/Units Serum Glucose 96 74-106 mg/dL Problem List/Assessment/Plan Problem List/Assessment/Plan Assessment and plan: Bilateral pulmonary embolism - CTA head and neck: Visualized portions of the pulmonary arteries demonstrate acute pulmonary bilateral pulmonary emboli involving the distal right main pulmonary artery and extending into the visualized proximal branches and in the left interlobar artery extending into the lingular and lower lobar branches as well as pulmonary embolism in the visualized portions of the left upper lobar pulmonary artery. - Therapeutic Lovenox - Supplemental O2 via NC - Echocardiogram has been done, pending report - POCUS: No right heart strain DVT ruled out - Bilateral lower extremity venous duplex US: No femoropopliteal deep vein thrombosis Possible PFO - Echocardiogram 11/08/2025: Normal left ventricular systolic function with estimated ejection fraction of 55-60%. Normal LV wall motion. Positive bubble study for interatrial right to left shunting suggestive of possible PFO, howevere, may consider YANICK for further evaluation if clinically correlated Acute ischemic stroke with right sided lower extremity weakness - Brain MRI: Foci of acute ischemia within the high left parietal lobe - Per neurology: Recommend supportive treatment, telemetry, MRI brain, MRI lumbar spine, carotid Doppler, echocardiogram, anticoagulation with Lovenox therapeutic dose, Lipitor 20 mg daily Severe neural foraminal stenosis - L spine MRI: Moderate lumbar degenerative disc disease, 4 mm anterolisthesis L4 upon L5, severe neural foraminal stenosis at L4 and L5 Hypertension - We will hold blood pressure medication at this time Hyperlipidemia - Atorvastatin 40 mg PO HS Anxiety/depression Essential tremor - Propranolol 60 mg PO daily Morbid obesity, BMI 40.1 kg/m2 DVT prophylaxis: Patient is on therapeutic lovenox GI prophylaxis: Not indicated Diet: Cardiac Goals of care discussed with the patient and her , Ronal, at bedside for over 41 minutes. FULL CODE Case discussed with Dr. Kwong Plan discussed with: Patient, Spouse, Other (Nurse) My Orders My Orders Orders - DORIAN GRIFFIN RESIDENT Procedure Category Date Status Time Pt Request For Service PT 11/08/25 Logged 11:03 * Cardiology Consult CONS 11/08/25 Transmitted 11:32 Guaifenesin-Dextromet PHA 11/08/25 Logged Liquid (Robitussin 18:15 Visit Coding STANDARD RES Billing Provider: CAROLINE KWONG MD Date of Service if different f: Nov 08, 2025 Common Visit Codes: [id number] INP/OBS CARE(MOD) DORIAN GRIFFIN RESIDENT Nov 08, 2025 18:22 CAROLINE KWONG MD Nov 18, 2025 10:29
[2025-11-08] MEDS: guaiFENesin-DM 100/10mg/5ml SYR PO ONE (19:16)
--- NOTE | 2025-11-08 20:31 | DVHPN2 ---
Progress Note - Dictate Date Seen: Nov 08, 2025 Medical Necessity Reason Pt with a Central, PICC or Fol: No Subjective Ms. Jackson is a 70 years old right-handed female with a history of dyslipidemia, obesity, she came to the [facility] on 11/06/2025 with a chief complaint of right leg weakness. I have seen and examined the patient, I have talked to her nurse, she reports doing fine, alert and fully oriented, no new complaint I do not see tremor today UDS, 11/07/2025: Negative WBC/HB/PLT/MCV, 11/07/2025: 12.4/14.1/237/97.8 BMP 11/06/2025: Unremarkable Liver function tests, 11/06/2025: Unremarkable TG/HDL/LDL/HDL, 11/07/2025: 174/171/99/47 Extremity venous study, 11/06/2025: No hemodynamically significant stenosis based on peak systolic velocity criteria. Echocardiogram grand, 11/08/2025: 1-Normal right and left ventricle systolic function with estimated ejection fraction of 60%. Normal LV wall motion 2-Biatrial dilatation 3-Trace tricuspid regurgitation 4-Mild aortic root dilatation diameter [address] head, 11/06/2025: No evidence of acute intracranial hemorrhage, mass effect, hydrocephalus or skull fracture CTA head, neck, 11/07/2025: 1. CTA head demonstrates no evidence of large vessel occlusion, aneurysm, or significant stenosis. 2. CTA neck demonstrates no evidence of carotid or vertebral dissection or significant stenosis. 3. Visualized portions of the pulmonary arteries demonstrate acute pulmonary bilateral pulmonary emboli involving the distal right main pulmonary artery and extending into the visualized proximal lobar branches and in the left interlobar artery extending into the lingular and lower lobar branches, as well as pulmonary emboli in the visualized portions of the left upper lobar pulmonary artery. Unable to evaluate for right heart strain within the field of view of this exam. 4. Additional findings as detailed above MRI head, 11/07/2025: 1. Small foci of acute ischemia within the high left parietal lobe. 2. Age-related involutional changes. Chronic microvascular changes.(I saw to punctate DWI lesion in the left occipital lobe) MRI Lumbar spine, 11/07/2025: Moderate lumbar degenerative disc disease. 4 mm anterolisthesis L4 upon L5. Severe neural foraminal stenosis at L4-5. [id number] neural foraminal stenosis of the remaining lumbar levels. No high-grade spinal canal stenosis. vital signs Vital Sign Date Time Temp Pulse Resp B/P (MAP) Pulse Ox O2 Delivery O2 Flow Rate FiO2 11/08/25 17:00 97.8 63 18 142/74 (96) 95 97.8 11/08/25 08:00 Room Air* 0 21 Total Intake and Output 11/07/25 11/07/25 11/08/25 15:00 23:00 07:00 Intake Total 860 ml 600 ml Output Total 400 ml Balance 460 ml 600 ml medications Current Medications Medications Dose Ordered Sig/Pao Route Start Time Stop Time Status Last Admin Dose Admin Acetaminophen 650 mg Q6HP PRN PO 11/07/25 05:45 Acetaminophen/ Hydrocodone Bitart 1 tab Q6HPRN PRN PO 11/07/25 06:45 11/08/25 17:13 1 TAB Acetaminophen 650 mg Q6HR PO 11/07/25 12:00 Cancel Enoxaparin Sodium 100 mg Q12HR SC 11/07/25 22:00 11/08/25 09:24 100 MG Lorazepam 1 mg ONCE PRN IV 11/07/25 11:15 Propranolol HCl 60 mg DAILY PO 11/08/25 10:00 11/08/25 09:24 60 MG Atorvastatin Calcium 40 mg HS PO 11/08/25 22:00 objective General: the patient is well developed and nourished. No acute distress. MUSCULOSKELETAL EXAM: Mild tenderness to palpation in the low back MENTAL STATUS: Awake and alert. Oriented to person, place, time and general circumstances. Able to give personal history. SPEECH, LANGUAGE, HIGHER CORTICAL FUNCTION: no aphasia or dysathria. CRANIAL NERVES: Pupils are equal, round and reactive. EOMs full and conjugate. No nystagmus. Facial sensation intact in all three divisions bilaterally. Mandibular strength intact. Facial muscles symmetrical and strength intact. SENSATION: Sensation to touch and pinprick is diminished below right L1 and L2 dermatomes MOTOR: Normal tone in the upper and lower extremity. Normal muscle bulk. No fasciculations. No abnormal movements or posturing. Muscle strength of the major groups in the upper extremities is 5/5. Muscle strength of the major groups in the lower extremities: Left: 5/5, right: 2/5. REFLEXES: Deep tendon reflexes normal and symmetrical. No pathological reflexes. CEREBELLAR/COORDINATION: Finger to nose and heel to ayers are normal bilaterally. GAIT/STATION: deferred laboratory and microbiology Laboratory Tests 11/08/25 04:40 Test 11/08/25 04:40 Range/Units Serum Glucose 96 74-106 mg/dL Problem List Acute right leg weakness, numbness/sensory loss Acute stroke strokes in the left MCA and JAVA SUPPORT ENGINEER territory Obesity Sleep-related breathing disorder Essential tremors Assessment/Plan Monitoring Supportive treatment Telemetry YANICK Lipid profile Anticoagulation treatment/Lovenox 100 mg subQ b.i.d. (PE) Lipitor 40 mg daily Propranolol 60 mg daily Address her sleep-related breathing disorder as outpatientpro More recommendation per clinical course This medical document was created using an electronic medical record system with [employer] computerized dictation system. Although this document has been carefully reviewed, there may still be some phonetic and typographical errors. These areas are purely typographical due to imperfections of the software programs, and do not reflect any compromise in the patient's medical care. Prognosis poor Plan discussed with: Patient, Other CECI BARRY MD Nov 08, 2025 20:30
[2025-11-08] MEDS: ATORVASTATIN 20 MG TAB PO SCH (21:14)
[2025-11-09] VITALS (8 sets, daily range): BP systolic 128–164; BP diastolic 74–86; PULSE 62–90; RESP 16–19; TEMP 96–98.3; O2SAT 90–98
--- NOTE | 2025-11-09 07:43 | DVHPNRES ---
Progress Note Date Seen: Nov 09, 2025 Resident Creating Document: DORIAN GRIFFIN RESIDENT Medical Necessity Reason Pt with a Central, PICC or Fol: No Subjective Review of Systems Ms. Jackson is a 70 year old female with PMHx of Anxiety, hypertension, hyperlipidemia, arthritis, essential tremors, and blood clot in left lower leg in 2017, who presented to [facility] with chief complaint of pain, weakness, and numbness of her right leg after a fall. The patient states she was getting out of bed yesterday morning when she got dizzy and fell landing on bilateral knees. She states she immediately had sharp right sided pain, 10/10 intensity, without aggravating or relieving factors associated with numbness and weakness rending her unable to stand up on her own. She denies head trauma, loss of consciousness, nausea, vomiting, palpitations, or chest pain. Due to persistence of weakness and pain, she presented to the ED for evaluation in the ED. On evaluation in the ED, she was afebrile, normocardic, normotensive, and saturating adequately on room air. 12 lead EKG shows sinus rhythm with possible anterior fascicular block. Initial labs are significant for mild leukocytosis and decreased aPTT. Head CT shows no acute intracranial findings. Lower extremity arterial US shows no hemodynamically significant stenosis. The patient was admitted for further work up and monitoring. On admission, CT angio of head and neck showed presence of bilateral pulmonary embolism for which she was started on therapeutic lovenox. She was evaluated by neurology who recommended MRI brain and spine. MRI brain was significant for small foci of acute ischemia within the high left parietal lobe. Patient was evaluated by cardiology, echocardiogram was performed showing positive bubble study for intra-arterial right to left shunting suggestive of possible PFO. PMHx: Anxiety, hypertension, hyperlipidemia, arthritis, essential tremors, blood clots, 3 early term miscarriages PSHx: Left ankle ORIF Allergies: [place] oil, avocado, banana Social history: Refers she smoked cigarettes for 15 years with cessation 15 years ago 11/09/2025: Patient seen at bedside. Per nurse, no overnight events to report. She is afebrile, normocardic, slightly hypertensive, and saturating adequately on room air. She is was evaluated by PT, who recommended home PT upon discharge. Per cardiology, due to positive bubble study on echocardiogram, the patient will go for [facility] on Tuesday. Objective vital signs Vital Sign Date Time Temp Pulse Resp B/P (MAP) Pulse Ox O2 Delivery O2 Flow Rate FiO2 11/09/25 05:00 96.0 71 17 152/81 (104) 98 96.0 11/08/25 20:00 Room Air* 0 21 Total Intake and Output 11/08/25 11/08/25 11/09/25 15:00 23:00 07:00 Intake Total 900 ml 400 ml Balance 900 ml 400 ml medications Current Medications Medications Dose Ordered Sig/Pao Route Start Time Stop Time Status Last Admin Dose Admin Acetaminophen 650 mg Q6HP PRN PO 11/07/25 05:45 Acetaminophen/ Hydrocodone Bitart 1 tab Q6HPRN PRN PO 11/07/25 06:45 11/09/25 05:52 1 TAB Acetaminophen 650 mg Q6HR PO 11/07/25 12:00 Cancel Enoxaparin Sodium 100 mg Q12HR SC 11/07/25 22:00 11/08/25 21:15 100 MG Lorazepam 1 mg ONCE PRN IV 11/07/25 11:15 Propranolol HCl 60 mg DAILY PO 11/08/25 10:00 11/08/25 09:24 60 MG Atorvastatin Calcium 40 mg HS PO 11/08/25 22:00 11/08/25 21:14 40 MG Examination General: The patient alert and oriented in person place and time. Patient following commands HEENT: Normocephalic, atraumatic, normal reactive pupils, EOM intact, pink conjunctiva, pink moist mucous membrane Respiratory/pulmonary: Bilateral chest expansion, no pain on palpation of chest wall, clear lungs bilaterally, vesicular murmurs present in almost all lung stone, no associated crackles or wheezes. Cardiovascular: Normal RRR, normal S1 and S2, no murmurs Abdomen: Abdomen nondistended, normal bowel sounds, soft, there is no pain to palpation in any of the abdominal quadrants, no palpable masses. Extremities: No deformities, no edema is observed, painful to palpation of bilateral calves Skin: No rashes or pruritus, there is no sacral edema present at this time. Neurological: Intact cranial nerves, sensation and strength intact in upper extremities, sensation and strength intact in lower extremity, strength 1/5 in right foot and calf, sensation intact in right calf, sensation decreased in right foot laboratory and microbiology Laboratory Tests 11/08/25 04:40 Test 11/08/25 04:40 Range/Units Serum Glucose 96 74-106 mg/dL Problem List/Assessment/Plan Problem List/Assessment/Plan Assessment and plan: Bilateral pulmonary embolism - CTA head and neck: Visualized portions of the pulmonary arteries demonstrate acute pulmonary bilateral pulmonary emboli involving the distal right main pulmonary artery and extending into the visualized proximal branches and in the left interlobar artery extending into the lingular and lower lobar branches as well as pulmonary embolism in the visualized portions of the left upper lobar pulmonary artery. - Therapeutic Lovenox - Supplemental O2 via NC - Echocardiogram has been done, pending report - POCUS: No right heart strain DVT ruled out - Bilateral lower extremity venous duplex US: No femoropopliteal deep vein thrombosis Possible PFO - Echocardiogram 11/08/2025: Normal left ventricular systolic function with estimated ejection fraction of 55-60%. Normal LV wall motion. Positive bubble study for interatrial right to left shunting suggestive of possible PFO - Per cardiology, patient will go for [facility] on Tuesday Acute ischemic stroke with right sided lower extremity weakness - Brain MRI: Foci of acute ischemia within the high left parietal lobe - Per neurology: Recommend supportive treatment, telemetry, MRI brain, MRI lumbar spine, carotid Doppler, echocardiogram, anticoagulation with Lovenox therapeutic dose, Lipitor 20 mg daily Severe neural foraminal stenosis - L spine MRI: Moderate lumbar degenerative disc disease, 4 mm anterolisthesis L4 upon L5, severe neural foraminal stenosis at L4 and L5 Hypertension - Losartan 50 mg PO daily Hyperlipidemia - Atorvastatin 40 mg PO HS Anxiety/depression Essential tremor - Propranolol 60 mg PO daily - Per cardiology, transition from propranolol to metoprolol Morbid obesity, BMI 40.1 kg/m2 DVT prophylaxis: Patient is on therapeutic lovenox GI prophylaxis: Not indicated Diet: Cardiac Goals of care discussed with the patient and her , Ronal, at bedside for over 34 minutes. FULL CODE Case discussed with Dr. Manuel Plan discussed with: Patient, Spouse, Other (Nurse) My Orders My Orders Orders - DORIAN GRIFFIN RESIDENT Procedure Category Date Status Time Pt Request For Service PT 11/08/25 Logged 11:03 * Cardiology Consult CONS 11/08/25 Transmitted 11:32 Visit Coding STANDARD RES Billing Provider: AIDEE MANUEL DO Date of Service if different f: Nov 09, 2025 Common Visit Codes: [id number] INP/OBS CARE(MOD) DORIAN GRIFFIN RESIDENT Nov 09, 2025 07:43
--- NOTE | 2025-11-09 10:15 | DVHPN2 ---
Consult Progress Note Date Seen: Nov 09, 2025 Subjective Review of Systems: CVS:Normal, RESPIRATORY:Normal, NEURO:Normal Objective vital signs Vital Sign Date Time Temp Pulse Resp B/P (MAP) Pulse Ox O2 Delivery O2 Flow Rate FiO2 11/09/25 09:00 97.6 62 17 131/74 (93) 96 97.6 11/08/25 20:00 Room Air* 0 21 Total Intake and Output 11/08/25 11/08/25 11/09/25 15:00 23:00 07:00 Intake Total 900 ml 400 ml Balance 900 ml 400 ml medications Current Medications Medications Dose Ordered Sig/Pao Route Start Time Stop Time Status Last Admin Dose Admin Acetaminophen 650 mg Q6HP PRN PO 11/07/25 05:45 Acetaminophen/ Hydrocodone Bitart 1 tab Q6HPRN PRN PO 11/07/25 06:45 11/09/25 05:52 1 TAB Acetaminophen 650 mg Q6HR PO 11/07/25 12:00 Cancel Enoxaparin Sodium 100 mg Q12HR SC 11/07/25 22:00 11/08/25 21:15 100 MG Lorazepam 1 mg ONCE PRN IV 11/07/25 11:15 Propranolol HCl 60 mg DAILY PO 11/08/25 10:00 11/08/25 09:24 60 MG Atorvastatin Calcium 40 mg HS PO 11/08/25 22:00 11/08/25 21:14 40 MG Examination: LUNGS:Normal, CVS:Abnormal (Sinus rhythm with transient SVT events), NEURO:Normal laboratory and microbiology Laboratory Tests 11/08/25 04:40 Test 11/08/25 04:40 Range/Units Serum Glucose 96 74-106 mg/dL Problem List/Assessment/Plan Problem List/Assessment/Plan Acute CVA, rule out cardiac etiology Rule out cardiac arrhythmias Supraventricular tachycardia Bigeminy PAC's Bilateral pulmonary emboli Hypertension Dyslipidemia History of left lower extremity DVT in 2017 Morbid obesity Plan/Recommendation () A transthoracic echocardiogram with bubble study revealed a LVEF of 55-60% with normal LV wall motion and positive bubble study for interatrial right to left shunting suggestive of possible PFO. Patient scheduled for a transesophageal echocardiogram on 11/11/2025. All risks and benefits of the procedure were discussed in full detail with the patient agreed for intervention. In the meantime, continue with therapeutic Lovenox and lipid-lowering agent. Continues with transient supraventricular tachycardia events, continue with close cardiac foreign exchange position clerk for cardiac arrhythmias. Transition from propanolol to metoprolol XL. Replete electrolytes as necessary. Thank you for allowing us to care for this patient. Please call with any questions or concerns. This medical document was created using an electronic medical record system with voice recognition software and computerized dictation system. Although this document has been carefully reviewed, there might still be some phonetic and typographical errors. Occasional wrong-word or ``sound-alike substitutions may have occurred due to the inherent limitations of voice recognition software. These areas are purely typographical due to imperfections of the software programs and do not reflect any compromise in the patient's medical care. Please read the chart carefully and recognize, using context, where these substitutions have occurred. Plan discussed with: Patient, Other Date of Service: Nov 09, 2025 Billing Provider: SALO BECKHAM Cardiology Common Codes: [id number] HOSP CARE(High SALO BECKHAM Nov 09, 2025 10:14
[2025-11-09 11:18] LABS: Potassium 3.7 mmol/L (3.5-5.1)
[2025-11-09 11:24] LABS: Magnesium 1.8 mg/dL (1.6-2.6)
[2025-11-09] MEDS: LOSARTAN POTASSIUM 50 MG TAB PO ONE (15:42)
[2025-11-09 18:07] LABS: PTT-LA 34.1 sec (0.0-43.5)
[2025-11-10] VITALS (8 sets, daily range): BP systolic 0–154; BP diastolic 73–99; PULSE 76–97; RESP 17–19; TEMP 97.7–99.5; O2SAT 93–99
[2025-11-10 06:21] LABS: Hematocrit 39.7 % (36.0-46.0); Hemoglobin 13.6 g/dL (12.2-16.2); Mean Corpuscular Hemoglobin 33.1 pg (28.0-32.0); Mean Corpuscular Volume 96.5 fL (80.0-100.0); Nucleated Red Blood Cells % 0.0 %
[2025-11-10 06:26] LABS: Sodium 145 mmol/L (136-145)
[2025-11-10 06:28] LABS: Calcium 9.4 mg/dL (8.7-10.4)
[2025-11-10 06:30] LABS: Chloride 110 mmol/L (98-107); Potassium 3.5 mmol/L (3.5-5.1)
[2025-11-10 06:32] LABS: BUN/Creatinine Ratio 13.4 (10.0-20.0); Glucose 99 mg/dL (74-106)
[2025-11-10 06:38] LABS: Blood Urea Nitrogen 9 mg/dL (9-23)
[2025-11-10 06:40] LABS: Anion Gap 12 (5-15); Carbon Dioxide 23 mmol/L (20-31)
--- NOTE | 2025-11-10 10:25 | DVHPNRES ---
Progress Note Date Seen: Nov 10, 2025 Resident Creating Document: KELLI HALE RESIDENT Medical Necessity Reason Pt with a Central, PICC or Fol: No Subjective Review of Systems Ms. Jackson is a 70 year old female with PMHx of Anxiety, hypertension, hyperlipidemia, arthritis, essential tremors, and blood clot in left lower leg in 2017, who presented to [facility] with chief complaint of pain, weakness, and numbness of her right leg after a fall. The patient states she was getting out of bed yesterday morning when she got dizzy and fell landing on bilateral knees. She states she immediately had sharp right sided pain, 10/10 intensity, without aggravating or relieving factors associated with numbness and weakness rending her unable to stand up on her own. She denies head trauma, loss of consciousness, nausea, vomiting, palpitations, or chest pain. Due to persistence of weakness and pain, she presented to the ED for evaluation in the ED. On evaluation in the ED, she was afebrile, normocardic, normotensive, and saturating adequately on room air. 12 lead EKG shows sinus rhythm with possible anterior fascicular block. Initial labs are significant for mild leukocytosis and decreased aPTT. Head CT shows no acute intracranial findings. Lower extremity arterial US shows no hemodynamically significant stenosis. The patient was admitted for further work up and monitoring. On admission, CT angio of head and neck showed presence of bilateral pulmonary embolism for which she was started on therapeutic lovenox. She was evaluated by neurology who recommended MRI brain and spine. MRI brain was significant for small foci of acute ischemia within the high left parietal lobe. Patient was evaluated by cardiology, echocardiogram was performed showing positive bubble study for intra-arterial right to left shunting suggestive of possible PFO. PMHx: Anxiety, hypertension, hyperlipidemia, arthritis, essential tremors, blood clots, 3 early term miscarriages PSHx: Left ankle ORIF Allergies: [place] oil, avocado, banana Social history: Refers she smoked cigarettes for 15 years with cessation 15 years ago 11/10/2025: Patient seen at bedside. No overnight event, on room air and mentioned improving right lower extremity weakness . She was evaluated by PT, who recommended home PT upon discharge. Scheduled for [facility] on Tuesday. Objective vital signs Vital Sign Date Time Temp Pulse Resp B/P (MAP) Pulse Ox O2 Delivery O2 Flow Rate FiO2 11/10/25 09:00 99.5 88 17 154/99 (117) 96 99.5 154/99 (117) 11/09/25 20:00 Room Air* 0 21 Total Intake and Output 11/09/25 11/09/25 11/10/25 15:00 23:00 07:00 Intake Total 800 ml 450 ml Balance 800 ml 450 ml medications Current Medications Medications Dose Ordered Sig/Pao Route Start Time Stop Time Status Last Admin Dose Admin Acetaminophen 650 mg Q6HP PRN PO 11/07/25 05:45 Acetaminophen/ Hydrocodone Bitart 1 tab Q6HPRN PRN PO 11/07/25 06:45 11/09/25 05:52 1 TAB Acetaminophen 650 mg Q6HR PO 11/07/25 12:00 Cancel Enoxaparin Sodium 100 mg Q12HR SC 11/07/25 22:00 11/09/25 22:36 100 MG Lorazepam 1 mg ONCE PRN IV 11/07/25 11:15 Atorvastatin Calcium 40 mg HS PO 11/08/25 22:00 11/09/25 22:36 40 MG Metoprolol Succinate 25 mg DAILY PO 11/10/25 10:00 Losartan Potassium 50 mg DAILY PO 11/10/25 10:00 Examination Physical examination: General Appearance: Alert, Oriented X3, Cooperative, No acute distress HEENT: Atraumatic, PERRLA, EOMI, Mucous membrane moist/pink Respiratory: Clear to auscultation, Normal air movement Cardiovascular: Regular rate, Normal S1, Normal S2, No murmurs, no chest wall tenderness Abdominal: Normal bowel sounds, Soft, No tenderness, No hepatospenomegaly, No masses Extremities: No clubbing, No cyanosis, No edema, Normal pulses, No tenderness/swelling Skin: No rashes, No breakdown, No significant lesion Neurological: Intact cranial nerves, sensation and strength intact in upper extremities, sensation and strength intact in lower extremity, strength 2/5 in right foot and calf, sensation intact in right calf, sensation decreased in right foot Psych/Mental Status: Mental status NL, Mood NL laboratory and microbiology Laboratory Tests 11/10/25 04:46 Test 11/10/25 04:46 Range/Units Serum Glucose 99 74-106 mg/dL Labs and/or images reviewed: Labs reviewed by me, Image(s) reviewed by me Problem List/Assessment/Plan Problem List/Assessment/Plan Assessment and plan: Bilateral pulmonary embolism - CTA head and neck: Visualized portions of the pulmonary arteries demonstrate acute pulmonary bilateral pulmonary emboli involving the distal right main pulmonary artery and extending into the visualized proximal branches and in the left interlobar artery extending into the lingular and lower lobar branches as well as pulmonary embolism in the visualized portions of the left upper lobar pulmonary artery. - Therapeutic Lovenox - Supplemental O2 via NC - Echocardiogram has been done, pending report - POCUS: No right heart strain DVT ruled out - Bilateral lower extremity venous duplex US: No femoropopliteal deep vein thrombosis Possible PFO - Echocardiogram 11/08/2025: Normal left ventricular systolic function with estimated ejection fraction of 55-60%. Normal LV wall motion. Positive bubble study for interatrial right to left shunting suggestive of possible PFO - Per cardiology, patient will go for [facility] on Tuesday Acute ischemic stroke with right sided lower extremity weakness - Brain MRI: Foci of acute ischemia within the high left parietal lobe - Per neurology: Recommend supportive treatment, telemetry, MRI brain, MRI lumbar spine, carotid Doppler, echocardiogram, anticoagulation with Lovenox therapeutic dose, Lipitor 20 mg daily Severe neural foraminal stenosis - L spine MRI: Moderate lumbar degenerative disc disease, 4 mm anterolisthesis L4 upon L5, severe neural foraminal stenosis at L4 and L5 Hypertension - Losartan 50 mg PO daily Hyperlipidemia - Atorvastatin 40 mg PO HS Anxiety/depression Essential tremor - Propranolol 60 mg PO daily - Per cardiology, transition from propranolol to metoprolol Morbid obesity, BMI 40.1 kg/m2 DVT prophylaxis: Patient is on therapeutic lovenox GI prophylaxis: Not indicated Diet: Cardiac Goals of care discussed with the patient and her , Ronal, at bedside for over 34 minutes. FULL CODE Case discussed with Dr. Manuel Plan discussed with: Patient, Other (RN) Visit Coding STANDARD RES Billing Provider: AIDEE MANUEL DO Date of Service if different f: Nov 10, 2025 Common Visit Codes: [id number] INP/OBS CARE(MOD) Secondary Visit Codes: [id number] CARE PLAN 30 MINUTES KELLI HALE RESIDENT Nov 10, 2025 10:25
[2025-11-10] MEDS: LOSARTAN POTASSIUM 50 MG TAB PO SCH (11:04)
[2025-11-10] MEDS: METOPROLOL SUCCINATE XL 50 MG TAB PO SCH (11:06)
[2025-11-10] MEDS: POTASSIUM EFFERVESENT TAB 25 MEQ PO ONE (11:25)
[2025-11-10] MEDS: MAGNESIUM OXIDE 400 MG TAB PO ONE (11:25)
--- NOTE | 2025-11-10 13:56 | DVHPN2 ---
YAA BECKHAM [facility] 11/10/25 1356: Consult Progress Note Date Seen: Nov 10, 2025 Subjective Review of Systems: CVS:Normal, RESPIRATORY:Normal, NEURO:Normal Objective vital signs Vital Sign Date Time Temp Pulse Resp B/P (MAP) Pulse Ox O2 Delivery O2 Flow Rate FiO2 11/10/25 13:00 98.2 87 19 138/87 (104) 98 98.2 138/87 (104) 11/10/25 08:00 Room Air* 0 21 Total Intake and Output 11/09/25 11/09/25 11/10/25 15:00 23:00 07:00 Intake Total 800 ml 450 ml Balance 800 ml 450 ml medications Current Medications Medications Dose Ordered Sig/Pao Route Start Time Stop Time Status Last Admin Dose Admin Acetaminophen 650 mg Q6HP PRN PO 11/07/25 05:45 Acetaminophen/ Hydrocodone Bitart 1 tab Q6HPRN PRN PO 11/07/25 06:45 11/09/25 05:52 1 TAB Acetaminophen 650 mg Q6HR PO 11/07/25 12:00 Cancel Enoxaparin Sodium 100 mg Q12HR SC 11/07/25 22:00 11/10/25 11:06 100 MG Lorazepam 1 mg ONCE PRN IV 11/07/25 11:15 Atorvastatin Calcium 40 mg HS PO 11/08/25 22:00 11/09/25 22:36 40 MG Metoprolol Succinate 25 mg DAILY PO 11/10/25 10:00 11/10/25 11:06 25 MG Losartan Potassium 50 mg DAILY PO 11/10/25 10:00 11/10/25 11:04 50 MG Examination: LUNGS:Normal, CVS:Normal, NEURO:Normal laboratory and microbiology Laboratory Tests 11/10/25 04:46 Test 11/10/25 04:46 Range/Units Serum Glucose 99 74-106 mg/dL Problem List/Assessment/Plan Problem List/Assessment/Plan Acute CVA, rule out cardiac etiology Rule out cardiac arrhythmias Supraventricular tachycardia Bigeminy PAC's Bilateral pulmonary emboli Hypertension Dyslipidemia History of left lower extremity DVT in 2017 Morbid obesity Plan/Recommendation () A transthoracic echocardiogram with bubble study revealed a LVEF of 55-60% with normal LV wall motion and positive bubble study for interatrial right to left shunting suggestive of possible PFO. Patient is scheduled for a transesophageal echocardiogram on 11/11/2025. In the meantime, continue with therapeutic Lovenox, metoprolol XL, and lipid-lowering agent. Continue with close cardiac personnel monitor for cardiac arrhythmias. Replete electrolytes as necessary, potassium >4 and Mg>2. The patient can benefit from an outpatient event monitor. Thank you for allowing us to care for this patient. Please call with any questions or concerns. This medical document was created using an electronic medical record system with voice recognition software and computerized dictation system. Although this document has been carefully reviewed, there might still be some phonetic and typographical errors. Occasional wrong-word or ``sound-alike substitutions may have occurred due to the inherent limitations of voice recognition software. These areas are purely typographical due to imperfections of the software programs and do not reflect any compromise in the patient's medical care. Please read the chart carefully and recognize, using context, where these substitutions have occurred. Plan discussed with: Patient, Other Date of Service: Nov 10, 2025 Billing Provider: YAA BECKHAM Cardiology Common Codes: [id number] HOSP CARE(High CHARMAINE ESPINO MD 11/10/25 1829: ADDENDUM ADDENDUM ADDENDUM Patient was seen and examined at bedside and plan was formulated with Yaa Beckham cardiology ELECTRICIAN UNDERGROUND as above. This is a 70-year-old woman with acute ischemic stroke based on MRI of the brain who presented with several hours of right lower extremity sensory and motor deficit. TTE was suggestive of positive bubble study. Patient does not have history of atrial fibrillation. She will require event monitor to rule out atrial fibrillation or atrial flutter. She will require YANICK to assess for presence of PFO or ASD. Charmaine Espino MD Interventional cardiology YAA BECKHAM Nov 10, 2025 13:56 CHARMAINE ESPINO MD Nov 10, 2025 18:29
[2025-11-10 17:06] LABS: Anticardiolipin IgG Antibody <9 GPL U/mL (0-14)
--- NOTE | 2025-11-10 19:25 | DVHPN2 ---
Progress Note - Dictate Date Seen: Nov 10, 2025 Medical Necessity Reason Pt with a Central, PICC or Fol: No Subjective Ms. Jackson is a 70 years old right-handed female with a history of dyslipidemia, obesity, she came to the [facility] on 11/06/2025 with a chief complaint of right leg weakness. I have seen and examined the patient, I have talked to her nurse, she reports doing fine, alert and fully oriented, she reports better, she was able to walk to bedside commode, no new complaint I do not see tremor today Son and in the room She is to have YANICK tomorrow UDS, 11/07/2025: Negative WBC/HB/PLT/MCV, 11/07/2025: 12.4/14.1/237/97.8 BMP 11/06/2025: Unremarkable Liver function tests, 11/06/2025: Unremarkable TG/HDL/LDL/HDL, 11/07/2025: 174/171/99/47 Extremity venous study, 11/06/2025: No hemodynamically significant stenosis based on peak systolic velocity criteria. Echocardiogram grand, 11/08/2025: 1-Normal right and left ventricle systolic function with estimated ejection fraction of 60%. Normal LV wall motion 2-Biatrial dilatation 3-Trace tricuspid regurgitation 4-Mild aortic root dilatation diameter [address] head, 11/06/2025: No evidence of acute intracranial hemorrhage, mass effect, hydrocephalus or skull fracture CTA head, neck, 11/07/2025: 1. CTA head demonstrates no evidence of large vessel occlusion, aneurysm, or significant stenosis. 2. CTA neck demonstrates no evidence of carotid or vertebral dissection or significant stenosis. 3. Visualized portions of the pulmonary arteries demonstrate acute pulmonary bilateral pulmonary emboli involving the distal right main pulmonary artery and extending into the visualized proximal lobar branches and in the left interlobar artery extending into the lingular and lower lobar branches, as well as pulmonary emboli in the visualized portions of the left upper lobar pulmonary artery. Unable to evaluate for right heart strain within the field of view of this exam. 4. Additional findings as detailed above MRI head, 11/07/2025: 1. Small foci of acute ischemia within the high left parietal lobe. 2. Age-related involutional changes. Chronic microvascular changes.(I saw to punctate DWI lesion in the left occipital lobe) MRI Lumbar spine, 11/07/2025: Moderate lumbar degenerative disc disease. 4 mm anterolisthesis L4 upon L5. Severe neural foraminal stenosis at L4-5. [id number] neural foraminal stenosis of the remaining lumbar levels. No high-grade spinal canal stenosis. vital signs Vital Sign Date Time Temp Pulse Resp B/P (MAP) Pulse Ox O2 Delivery O2 Flow Rate FiO2 11/10/25 17:00 97.7 85 19 117/73 (88) 93 97.7 117/73 (88) 11/10/25 08:00 Room Air* 0 21 Total Intake and Output 11/09/25 11/09/25 11/10/25 15:00 23:00 07:00 Intake Total 800 ml 450 ml Balance 800 ml 450 ml medications Current Medications Medications Dose Ordered Sig/Pao Route Start Time Stop Time Status Last Admin Dose Admin Acetaminophen 650 mg Q6HP PRN PO 11/07/25 05:45 Acetaminophen/ Hydrocodone Bitart 1 tab Q6HPRN PRN PO 11/07/25 06:45 11/09/25 05:52 1 TAB Acetaminophen 650 mg Q6HR PO 11/07/25 12:00 Cancel Enoxaparin Sodium 100 mg Q12HR SC 11/07/25 22:00 11/10/25 11:06 100 MG Lorazepam 1 mg ONCE PRN IV 11/07/25 11:15 Atorvastatin Calcium 40 mg HS PO 11/08/25 22:00 11/09/25 22:36 40 MG Metoprolol Succinate 25 mg DAILY PO 11/10/25 10:00 11/10/25 11:06 25 MG Losartan Potassium 50 mg DAILY PO 11/10/25 10:00 11/10/25 11:04 50 MG Throat Lozenges 1 srikanth Q2HP PRN MT 11/10/25 14:00 objective General: the patient is well developed and nourished. No acute distress. MUSCULOSKELETAL EXAM: Mild tenderness to palpation in the low back MENTAL STATUS: Awake and alert. Oriented to person, place, time and general circumstances. Able to give personal history. SPEECH, LANGUAGE, HIGHER CORTICAL FUNCTION: no aphasia or dysathria. CRANIAL NERVES: Pupils are equal, round and reactive. EOMs full and conjugate. No nystagmus. Facial sensation intact in all three divisions bilaterally. Mandibular strength intact. Facial muscles symmetrical and strength intact. SENSATION: Sensation to touch and pinprick is fine MOTOR: Normal tone in the upper and lower extremity. Normal muscle bulk. No fasciculations. No abnormal movements or posturing. Muscle strength of the major groups in the upper extremities is 5/5. Muscle strength of the major groups in the lower extremities: Left: 5/5, right: 4/5. REFLEXES: Deep tendon reflexes normal and symmetrical. No pathological reflexes. CEREBELLAR/COORDINATION: Finger to nose and heel to ayers are normal bilaterally. GAIT/STATION: deferred laboratory and microbiology Laboratory Tests 11/10/25 04:46 Test 11/10/25 04:46 Range/Units Serum Glucose 99 74-106 mg/dL Problem List Acute right leg weakness, numbness/sensory loss Acute stroke strokes in the left MCA and [place] territory Obesity Sleep-related breathing disorder Essential tremors Assessment/Plan Monitoring Supportive treatment Telemetry YANICK Anticoagulation treatment/Lovenox 100 mg subQ b.i.d. (PE) Lipitor 40 mg daily Propranolol 60 mg daily Address her sleep-related breathing disorder as outpatientpro More recommendation per clinical course This medical document was created using an electronic medical record system with imgix dictation system. Although this document has been carefully reviewed, there may still be some phonetic and typographical errors. These areas are purely typographical due to imperfections of the software programs, and do not reflect any compromise in the patient's medical care. Prognosis poor Plan discussed with: Patient, Spouse, Son, Other CECI BARRY MD Nov 10, 2025 19:25
[2025-11-10] MEDS: THROAT LOZENGES(CEPASTAT) MT PRN (21:21)
[2025-11-11] VITALS (8 sets, daily range): BP systolic 123–144; BP diastolic 70–89; PULSE 71–89; RESP 17–18; TEMP 97.6–98.4; O2SAT 92–97
[2025-11-11 05:58] LABS: Hematocrit 39.5 % (36.0-46.0); Hemoglobin 13.7 g/dL (12.2-16.2); Mean Corpuscular Hemoglobin 33.3 pg (28.0-32.0); Mean Corpuscular Volume 95.8 fL (80.0-100.0); Nucleated Red Blood Cells % 0.0 %
[2025-11-11 06:05] LABS: Anion Gap 10 (5-15); Carbon Dioxide 28 mmol/L (20-31); Potassium 3.7 mmol/L (3.5-5.1); Sodium 145 mmol/L (136-145)
[2025-11-11 06:07] LABS: Calcium 9.4 mg/dL (8.7-10.4)
[2025-11-11 06:08] LABS: Chloride 107 mmol/L (98-107)
[2025-11-11 06:11] LABS: Glucose 101 mg/dL (74-106)
[2025-11-11 06:12] LABS: BUN/Creatinine Ratio 14.0 (10.0-20.0); Blood Urea Nitrogen 12 mg/dL (9-23)
--- NOTE | 2025-11-11 12:33 | DVHPN2 ---
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 at time of assessment Objective vital signs Vital Sign Date Time Temp Pulse Resp B/P (MAP) Pulse Ox O2 Delivery O2 Flow Rate FiO2 11/11/25 10:47 79 125/56 11/11/25 09:00 97.7 17 94 97.7 11/10/25 20:00 Room Air* 0 21 Total Intake and Output 11/10/25 11/10/25 11/11/25 15:00 23:00 07:00 Intake Total 400 ml 0 ml Balance 400 ml 0 ml medications Current Medications Medications Dose Ordered Sig/Pao Route Start Time Stop Time Status Last Admin Dose Admin Acetaminophen 650 mg Q6HP PRN PO 11/07/25 05:45 Acetaminophen/ Hydrocodone Bitart 1 tab Q6HPRN PRN PO 11/07/25 06:45 11/11/25 10:47 1 TAB Acetaminophen 650 mg Q6HR PO 11/07/25 12:00 Cancel Enoxaparin Sodium 100 mg Q12HR SC 11/07/25 22:00 11/11/25 10:48 100 MG Lorazepam 1 mg ONCE PRN IV 11/07/25 11:15 Atorvastatin Calcium 40 mg HS PO 11/08/25 22:00 11/10/25 21:20 40 MG Metoprolol Succinate 25 mg DAILY PO 11/10/25 10:00 11/11/25 10:47 25 MG Losartan Potassium 50 mg DAILY PO 11/10/25 10:00 11/10/25 11:04 50 MG Throat Lozenges 1 marsha Q2HP PRN MT 11/10/25 14:00 11/11/25 10:48 1 MARSHA Examination: GENERAL:Normal, LUNGS:Normal, CVS:Normal, NEURO:Normal laboratory and microbiology Laboratory Tests 11/11/25 04:39 Test 11/11/25 04:39 Range/Units Serum Glucose 101 74-106 mg/dL Problem List/Assessment/Plan Problem List/Assessment/Plan Acute CVA, rule out cardiac etiology Rule out cardiac arrhythmias Supraventricular tachycardia Bigeminy PAC's Bilateral pulmonary emboli Hypertension Dyslipidemia History of left lower extremity DVT in 2017 Morbid obesity Plan/Recommendation () A transthoracic echocardiogram with bubble study revealed a LVEF of 55-60% with normal LV wall motion and positive bubble study for interatrial right to left shunting suggestive of possible PFO. Patient is rescheduled for a transesophageal echocardiogram on 11/12/2025 with . In the meantime, continue with therapeutic Lovenox, metoprolol XL, and lipid-lowering agent. Continue with close cardiac escort vehicle driver for cardiac arrhythmias. Replete electrolytes as necessary, potassium >4 and Mg>2. The patient can benefit from an outpatient event monitor. Thank you for allowing us to care for this patient. Please call with any questions or concerns. This medical document was created using an electronic medical record system with voice recognition software and computerized dictation system. Although this document has been carefully reviewed, there might still be some phonetic and typographical errors. Occasional wrong-word or ``sound-alike substitutions may have occurred due to the inherent limitations of voice recognition software. These areas are purely typographical due to imperfections of the software programs and do not reflect any compromise in the patient's medical care. Please read the chart carefully and recognize, using context, where these substitutions have occurred. Plan discussed with: Patient Date of Service: Nov 11, 2025 Billing Provider: JAKI MOORE Common Visit Codes: [id number] INP/OBS CARE(HIGH) JAKI MOORE Nov 11, 2025 12:33
--- NOTE | 2025-11-11 15:40 | DVHPNRES ---
Progress Note Date Seen: Nov 11, 2025 Resident Creating Document: DORIAN GRIFFIN RESIDENT Medical Necessity Reason Pt with a Central, PICC or Fol: No Subjective Review of Systems Ms. Jackson is a 70 year old female with PMHx of Anxiety, hypertension, hyperlipidemia, arthritis, essential tremors, and blood clot in left lower leg in 2017, who presented to [facility] with chief complaint of pain, weakness, and numbness of her right leg after a fall. The patient states she was getting out of bed yesterday morning when she got dizzy and fell landing on bilateral knees. She states she immediately had sharp right sided pain, 10/10 intensity, without aggravating or relieving factors associated with numbness and weakness rending her unable to stand up on her own. She denies head trauma, loss of consciousness, nausea, vomiting, palpitations, or chest pain. Due to persistence of weakness and pain, she presented to the ED for evaluation in the ED. On evaluation in the ED, she was afebrile, normocardic, normotensive, and saturating adequately on room air. 12 lead EKG shows sinus rhythm with possible anterior fascicular block. Initial labs are significant for mild leukocytosis and decreased aPTT. Head CT shows no acute intracranial findings. Lower extremity arterial US shows no hemodynamically significant stenosis. The patient was admitted for further work up and monitoring. On admission, CT angio of head and neck showed presence of bilateral pulmonary embolism for which she was started on therapeutic lovenox. She was evaluated by neurology who recommended MRI brain and spine. MRI brain was significant for small foci of acute ischemia within the high left parietal lobe. Patient was evaluated by cardiology, echocardiogram was performed showing positive bubble study for intra-arterial right to left shunting suggestive of possible PFO. PMHx: Anxiety, hypertension, hyperlipidemia, arthritis, essential tremors, blood clots, 3 early term miscarriages PSHx: Left ankle ORIF Allergies: [place] oil, avocado, banana Social history: Refers she smoked cigarettes for 15 years with cessation 15 years ago PCP: Dr. Ding. 11/11/2025: Patient seen at bedside. Per nurse, no overnight events to report. She is afebrile, normocardic, slightly hypertensive, and saturating adequately on room air. She continues to work with PT. She will go for YANICK tomorrow, possible discharge after. Objective vital signs Vital Sign Date Time Temp Pulse Resp B/P (MAP) Pulse Ox O2 Delivery O2 Flow Rate FiO2 11/11/25 13:00 97.9 71 18 123/75 (91) 95 97.9 11/11/25 08:00 Room Air* 0 21 Total Intake and Output 11/10/25 11/10/25 11/11/25 15:00 23:00 07:00 Intake Total 400 ml 0 ml Balance 400 ml 0 ml medications Current Medications Medications Dose Ordered Sig/Pao Route Start Time Stop Time Status Last Admin Dose Admin Acetaminophen 650 mg Q6HP PRN PO 11/07/25 05:45 Acetaminophen/ Hydrocodone Bitart 1 tab Q6HPRN PRN PO 11/07/25 06:45 11/11/25 10:47 1 TAB Acetaminophen 650 mg Q6HR PO 11/07/25 12:00 Cancel Enoxaparin Sodium 100 mg Q12HR SC 11/07/25 22:00 11/11/25 10:48 100 MG Lorazepam 1 mg ONCE PRN IV 11/07/25 11:15 Atorvastatin Calcium 40 mg HS PO 11/08/25 22:00 11/10/25 21:20 40 MG Metoprolol Succinate 25 mg DAILY PO 11/10/25 10:00 11/11/25 10:47 25 MG Losartan Potassium 50 mg DAILY PO 11/10/25 10:00 11/10/25 11:04 50 MG Throat Lozenges 1 marsha Q2HP PRN MT 11/10/25 14:00 11/11/25 10:48 1 MARSHA Examination General: The patient alert and oriented in person place and time. Patient following commands HEENT: Normocephalic, atraumatic, normal reactive pupils, EOM intact, pink conjunctiva, pink moist mucous membrane Respiratory/pulmonary: Bilateral chest expansion, no pain on palpation of chest wall, clear lungs bilaterally, vesicular murmurs present in almost all lung stone, no associated crackles or wheezes. Cardiovascular: Normal RRR, normal S1 and S2, no murmurs Abdomen: Abdomen nondistended, normal bowel sounds, soft, there is no pain to palpation in any of the abdominal quadrants, no palpable masses. Extremities: No deformities, no edema is observed, painful to palpation of bilateral calves Skin: No rashes or pruritus, there is no sacral edema present at this time. Neurological: Intact cranial nerves, sensation and strength intact in upper extremities, sensation and strength intact in lower extremity, strength 1/5 in right foot and calf, sensation intact in right calf, sensation decreased in right foot, improved strength in right thigh laboratory and microbiology Laboratory Tests 11/11/25 04:39 Test 11/11/25 04:39 Range/Units Serum Glucose 101 74-106 mg/dL Problem List/Assessment/Plan Problem List/Assessment/Plan Assessment and plan: Bilateral pulmonary embolism - CTA head and neck: Visualized portions of the pulmonary arteries demonstrate acute pulmonary bilateral pulmonary emboli involving the distal right main pulmonary artery and extending into the visualized proximal branches and in the left interlobar artery extending into the lingular and lower lobar branches as well as pulmonary embolism in the visualized portions of the left upper lobar pulmonary artery. - Therapeutic Lovenox - Supplemental O2 via NC - Echocardiogram has been done - POCUS: No right heart strain DVT ruled out - Bilateral lower extremity venous duplex US: No femoropopliteal deep vein thrombosis Possible PFO - Echocardiogram 11/08/2025: Normal left ventricular systolic function with estimated ejection fraction of 55-60%. Normal LV wall motion. Positive bubble study for interatrial right to left shunting suggestive of possible PFO - Per cardiology, patient will go for YANICK on tomorrow Acute ischemic stroke with right sided lower extremity weakness - Brain MRI: Foci of acute ischemia within the high left parietal lobe - Per neurology: Recommend supportive treatment, telemetry, MRI brain, MRI lumbar spine, carotid Doppler, echocardiogram, anticoagulation with Lovenox therapeutic dose, Lipitor 20 mg daily Severe neural foraminal stenosis - L spine MRI: Moderate lumbar degenerative disc disease, 4 mm anterolisthesis L4 upon L5, severe neural foraminal stenosis at L4 and L5 Hypertension - Losartan 50 mg PO daily Hyperlipidemia - Atorvastatin 40 mg PO HS Anxiety/depression Essential tremor - Propranolol 60 mg PO daily - Per cardiology, transition from propranolol to metoprolol Morbid obesity, BMI 40.1 kg/m2 DVT prophylaxis: Patient is on therapeutic lovenox GI prophylaxis: Not indicated Diet: Cardiac Goals of care discussed with the patient and her , Ronal, at bedside for over 31 minutes. FULL CODE Case discussed with Dr. Varghese Adler discussed with: Patient, Spouse, Other (Nurse) My Orders My Orders Orders - DORIAN GRIFFIN RESIDENT Procedure Category Date Status Time Dme: Commode DME 11/11/25 Verified 15:37 Visit Coding STANDARD RES Billing Provider: CAROLINE ZAMORA MD Date of Service if different f: Nov 11, 2025 Common Visit Codes: [id number] INP/OBS CARE(MOD) DORIAN GRIFFIN RESIDENT Nov 11, 2025 15:40 CAROLINE ZAMORA MD Nov 18, 2025 10:32
[2025-11-11] MEDS: ACETAMINOPHEN 325 MG TAB PO PRN (20:52)
[2025-11-12] VITALS (12 sets, daily range): BP systolic 109–178; BP diastolic 55–93; PULSE 74–100; RESP 16–20; TEMP 97.5–98.6; O2SAT 92–99
[2025-11-12 06:41] LABS: Anion Gap 8 (5-15); Carbon Dioxide 27 mmol/L (20-31); Potassium 3.8 mmol/L (3.5-5.1); Sodium 142 mmol/L (136-145)
[2025-11-12 06:43] LABS: Calcium 9.4 mg/dL (8.7-10.4)
[2025-11-12 06:47] LABS: Glucose 99 mg/dL (74-106)
[2025-11-12 06:48] LABS: BUN/Creatinine Ratio 14.1 (10.0-20.0); Blood Urea Nitrogen 11 mg/dL (9-23); Magnesium 1.9 mg/dL (1.6-2.6)
[2025-11-12 06:49] LABS: Chloride 107 mmol/L (98-107)
--- NOTE | 2025-11-12 07:32 | ECG ---
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
[2025-11-12] MEDS: LIDOCAINE VISCOUS 2% 15ML UD MT ONE (12:48)
[2025-11-12] MEDS: MIDAZOLAM HCL 2MG/2ML 2ml VIAL (1mg/ml) IV ONE (12:51)
[2025-11-12] MEDS: fentaNYL CITRATE 100 MCG/2 ML VL IV ONE (12:51)
--- NOTE | 2025-11-12 13:09 | DVHOP2 ---
Operative Report - 2 Report Details Date: 11/12/25 Preop Diagnosis: CVA Postop Diagnosis: Normal YANICK Surgeon: Julienne Bhatia MD Anesthesiologist: Conscious sedation given. I personally supervised the administration of conscious sedation and monitored the patient for about15 minutes throughout the procedure. Anesthesia: Mac, Local Consent: The patient was informed of the risks and benefits of the procedure. These include but are not limited to complications of anesthesia, postoperative infection, incomplete relief of symptoms, recurrence of symptoms, damage to blood vessels, nerves and tendons, deep venous thrombosis, pulmonary embolism and possible need for repeat surgery in the future. Complications: No complications. Findings: Normal YANICK Indications for Surgery: CVA/TIA Name of Procedure Performed Transesophageal echocardiogram Procedure Details Procedure Details: Prior full informed consent obtained the patient was placed in left lateral and semi-Lazcano position. A transesophageal probe was passed after giving patient lidocaine gel for gargling. Conscious sedation given. Probe was passed without difficulty. Standard views obtained. Transgastric views obtained. Bubble study performed. Conclusions: Technically good study. Sinus rhythm. Concentric LVH. Left atrial enlargement. The mitral tricuspid and aortic or structurally normal. The pulmonic is not clearly visualized. Left ventricular systolic performance is preserved at 60%. Normal RV function. Trace mitral insufficiency. Mild tricuspid regurgitation. No pericardial effusion. No masses or vegetations discernible. No atrial septal defect. No ventricular septal defect identified. Bubble study is within normal limits without crossover. The appendage is clean without thrombi. Recommendations: Continue current medical therapy. Risk factor modification. Condition Good Disposition Still a Patient Date of Service: Nov 12, 2025 Billing Provider: JULIENNE BHATIA Sr., MD Cardiology Common Codes: [id number] INP/OBS CARE (High) Cardiology Procedure Codes: 04845-VCM W/IMG DOC INCL PROB ACQ (Bubble study performed.) JULIENNE BHATIA Sr., MD Nov 12, 2025 13:09
--- NOTE | 2025-11-12 16:28 | DVHPNRES ---
Progress Note Date Seen: Nov 12, 2025 Resident Creating Document: DORIAN GRIFFIN RESIDENT Medical Necessity Reason Pt with a Central, PICC or Fol: No Subjective Review of Systems Ms. Jackson is a 70 year old female with PMHx of Anxiety, hypertension, hyperlipidemia, arthritis, essential tremors, and blood clot in left lower leg in 2017, who presented to [facility] with chief complaint of pain, weakness, and numbness of her right leg after a fall. The patient states she was getting out of bed yesterday morning when she got dizzy and fell landing on bilateral knees. She states she immediately had sharp right sided pain, 10/10 intensity, without aggravating or relieving factors associated with numbness and weakness rending her unable to stand up on her own. She denies head trauma, loss of consciousness, nausea, vomiting, palpitations, or chest pain. Due to persistence of weakness and pain, she presented to the ED for evaluation in the ED. On evaluation in the ED, she was afebrile, normocardic, normotensive, and saturating adequately on room air. 12 lead EKG shows sinus rhythm with possible anterior fascicular block. Initial labs are significant for mild leukocytosis and decreased aPTT. Head CT shows no acute intracranial findings. Lower extremity arterial US shows no hemodynamically significant stenosis. The patient was admitted for further work up and monitoring. On admission, CT angio of head and neck showed presence of bilateral pulmonary embolism for which she was started on therapeutic lovenox. She was evaluated by neurology who recommended MRI brain and spine. MRI brain was significant for small foci of acute ischemia within the high left parietal lobe. Patient was evaluated by cardiology, echocardiogram was performed showing positive bubble study for intra-arterial right to left shunting suggestive of possible PFO. PMHx: Anxiety, hypertension, hyperlipidemia, arthritis, essential tremors, blood clots, 3 early term miscarriages PSHx: Left ankle ORIF Allergies: [place] oil, avocado, banana Social history: Refers she smoked cigarettes for 15 years with cessation 15 years ago PCP: Dr. Ding 11/12/2025: Seen at bedside. Per nurse, no overnight events to report. She is afebrile, normocardic, normotensive, and saturating adequately on room air. Patient went for YANICK today without complication. She continues to work with PT who currently recommends SNF for PT due to requiring max assist. director learning services consult has been placed. Objective vital signs Vital Sign Date Time Temp Pulse Resp B/P (MAP) Pulse Ox O2 Delivery O2 Flow Rate FiO2 11/12/25 16:13 140/69 11/12/25 16:12 100 11/12/25 13:45 98.0 17 98 98.0 11/12/25 08:00 Room Air* 0 21 Total Intake and Output 11/11/25 11/11/25 11/12/25 15:00 23:00 07:00 Intake Total 750 ml 0 ml Balance 750 ml 0 ml medications Current Medications Medications Dose Ordered Sig/Pao Route Start Time Stop Time Status Last Admin Dose Admin Acetaminophen 650 mg Q6HP PRN PO 11/07/25 05:45 11/11/25 20:52 650 MG Acetaminophen/ Hydrocodone Bitart 1 tab Q6HPRN PRN PO 11/07/25 06:45 11/12/25 16:14 1 TAB Acetaminophen 650 mg Q6HR PO 11/07/25 12:00 Cancel Enoxaparin Sodium 100 mg Q12HR SC 11/07/25 22:00 11/11/25 21:26 100 MG Lorazepam 1 mg ONCE PRN IV 11/07/25 11:15 Atorvastatin Calcium 40 mg HS PO 11/08/25 22:00 11/11/25 21:26 40 MG Metoprolol Succinate 25 mg DAILY PO 11/10/25 10:00 11/12/25 16:12 25 MG Losartan Potassium 50 mg DAILY PO 11/10/25 10:00 11/12/25 16:13 50 MG Throat Lozenges 1 marsha Q2HP PRN MT 11/10/25 14:00 11/11/25 10:48 1 MARSHA Examination General: The patient alert and oriented in person place and time. Patient following commands HEENT: Normocephalic, atraumatic, normal reactive pupils, EOM intact, pink conjunctiva, pink moist mucous membrane Respiratory/pulmonary: Bilateral chest expansion, no pain on palpation of chest wall, clear lungs bilaterally, vesicular murmurs present in almost all lung stone, no associated crackles or wheezes. Cardiovascular: Normal RRR, normal S1 and S2, no murmurs Abdomen: Abdomen nondistended, normal bowel sounds, soft, there is no pain to palpation in any of the abdominal quadrants, no palpable masses. Extremities: No deformities, no edema is observed, painful to palpation of bilateral calves Skin: No rashes or pruritus, there is no sacral edema present at this time. Neurological: Intact cranial nerves, sensation and strength intact in upper extremities, sensation and strength intact in lower extremity, strength 1/5 in right foot and calf, sensation intact in right calf, sensation decreased in right foot, improved strength in right thigh laboratory and microbiology Laboratory Tests 11/12/25 04:40 11/11/25 04:39 Test 11/12/25 04:40 Range/Units Serum Glucose 99 74-106 mg/dL Problem List/Assessment/Plan Problem List/Assessment/Plan Assessment and plan: Bilateral pulmonary embolism - CTA head and neck: Visualized portions of the pulmonary arteries demonstrate acute pulmonary bilateral pulmonary emboli involving the distal right main pulmonary artery and extending into the visualized proximal branches and in the left interlobar artery extending into the lingular and lower lobar branches as well as pulmonary embolism in the visualized portions of the left upper lobar pulmonary artery. - Therapeutic Lovenox - Supplemental O2 via NC - Echocardiogram 11/08/2025: Normal left ventricular systolic function with estimated ejection fraction of 55-60%. Normal LV wall motion. Positive bubble study for interatrial right to left shunting suggestive of possible PFO - POCUS: No right heart strain DVT ruled out - Bilateral lower extremity venous duplex US: No femoropopliteal deep vein thrombosis Possible PFO - Echocardiogram 11/08/2025: Normal left ventricular systolic function with estimated ejection fraction of 55-60%. Normal LV wall motion. Positive bubble study for interatrial right to left shunting suggestive of possible PFO - YANICK: Concentric LVH, left atrial enlargement, mitral tricuspid and aortic are structurally normal. The pulmonic is not clearly visualized, left ventricular systolic performance is preserved at 60%. Normal RV function, trace mitral insufficiency, mild tricuspid regurgitation, bubble study is within normal limits without crossover Acute ischemic stroke with right sided lower extremity weakness - Brain MRI: Foci of acute ischemia within the high left parietal lobe - Per neurology: Recommend supportive treatment, telemetry, MRI brain, MRI lumbar spine, carotid Doppler, echocardiogram, anticoagulation with Lovenox therapeutic dose, Lipitor 20 mg daily Severe neural foraminal stenosis - L spine MRI: Moderate lumbar degenerative disc disease, 4 mm anterolisthesis L4 upon L5, severe neural foraminal stenosis at L4 and L5 Hypertension - Losartan 50 mg PO daily Hyperlipidemia - Atorvastatin 40 mg PO HS Anxiety/depression Essential tremor - Propranolol 60 mg PO daily - Per cardiology, transition from propranolol to metoprolol Morbid obesity, BMI 40.1 kg/m2 director learning services consult has been placed for SNF for PT, as recommended by Physical therapy. DVT prophylaxis: Patient is on therapeutic lovenox GI prophylaxis: Not indicated Diet: Cardiac Goals of care discussed with the patient and her , Ronal, at bedside for over 25 minutes. FULL CODE Case discussed with Dr. Kwong Plan discussed with: Patient, Spouse, Son, Other (Nurse) My Orders My Orders Orders - DORIAN GRIFFIN RESIDENT Procedure Category Date Status Time * Water Ski [employer]er CONS 11/12/25 Transmitted Consult Visit Coding STANDARD RES Billing Provider: CAROLINE KWONG MD Date of Service if different f: Nov 12, 2025 Common Visit Codes: [id number] INP/OBS CARE(MOD) DORIAN GRIFFIN RESIDENT Nov 12, 2025 16:28 CAROLINE KWONG MD Nov 19, 2025 15:44
[2025-11-12] MEDS: ONDANSETRON HCL 4 MG/2 ML VIAL IV ONE (17:29)
[2025-11-13 00:32] VITALS: BP 123/88; PULSE 84; RESP 18; TEMP 97.9; O2SAT 98
[2025-11-13 04:44] VITALS: BP 117/69; PULSE 86; RESP 19; TEMP 97.9; O2SAT 93
[2025-11-13 09:00] VITALS: BP 123/73; PULSE 84; RESP 19; TEMP 98.2; O2SAT 97
[2025-11-13 13:00] VITALS: BP 111/65; PULSE 91; RESP 17; TEMP 98.2; O2SAT 98
--- NOTE | 2025-11-13 16:37 | DVHPNRES ---
Progress Note Date Seen: Nov 13, 2025 Resident Creating Document: KELLI HALE RESIDENT Medical Necessity Reason Pt with a Central, PICC or Fol: No Subjective Review of Systems Ms. Jackson is a 70 year old female with PMHx of Anxiety, hypertension, hyperlipidemia, arthritis, essential tremors, and blood clot in left lower leg in 2017, who presented to [facility] with chief complaint of pain, weakness, and numbness of her right leg after a fall. The patient states she was getting out of bed yesterday morning when she got dizzy and fell landing on bilateral knees. She states she immediately had sharp right sided pain, 10/10 intensity, without aggravating or relieving factors associated with numbness and weakness rending her unable to stand up on her own. She denies head trauma, loss of consciousness, nausea, vomiting, palpitations, or chest pain. Due to persistence of weakness and pain, she presented to the ED for evaluation in the ED. On evaluation in the ED, she was afebrile, normocardic, normotensive, and saturating adequately on room air. 12 lead EKG shows sinus rhythm with possible anterior fascicular block. Initial labs are significant for mild leukocytosis and decreased aPTT. Head CT shows no acute intracranial findings. Lower extremity arterial US shows no hemodynamically significant stenosis. The patient was admitted for further work up and monitoring. On admission, CT angio of head and neck showed presence of bilateral pulmonary embolism for which she was started on therapeutic lovenox. She was evaluated by neurology who recommended MRI brain and spine. MRI brain was significant for small foci of acute ischemia within the high left parietal lobe. Patient was evaluated by cardiology, echocardiogram was performed showing positive bubble study for intra-arterial right to left shunting suggestive of possible PFO. PMHx: Anxiety, hypertension, hyperlipidemia, arthritis, essential tremors, blood clots, 3 early term miscarriages PSHx: Left ankle ORIF Allergies: [place] oil, avocado, banana Social history: Refers she smoked cigarettes for 15 years with cessation 15 years ago PCP: Dr. Ding 11/13/2025: Seen at bedside. Per nurse, no overnight events to report. She is afebrile, normocardic, normotensive, and saturating adequately on room air. Patient underwent YANICK yesterday and revealed normal study. PT recommended SNF for PT because of the max assist. rice field worker was consulted for SNF placement and mentioned per insurance it will take 4-5 days to get the auth for placement because of the holidays. Objective vital signs Vital Sign Date Time Temp Pulse Resp B/P (MAP) Pulse Ox O2 Delivery O2 Flow Rate FiO2 11/13/25 13:00 98.2 91 17 111/65 (80) 98 98.2 11/13/25 08:00 Room Air* 0 21 Total Intake and Output 11/12/25 11/12/25 11/13/25 15:00 23:00 07:00 Intake Total 200 ml 1200 ml Balance 200 ml 1200 ml medications Current Medications Medications Dose Ordered Sig/Pao Route Start Time Stop Time Status Last Admin Dose Admin Acetaminophen 650 mg Q6HP PRN PO 11/07/25 05:45 11/11/25 20:52 650 MG Acetaminophen/ Hydrocodone Bitart 1 tab Q6HPRN PRN PO 11/07/25 06:45 11/13/25 10:06 1 TAB Acetaminophen 650 mg Q6HR PO 11/07/25 12:00 Cancel Enoxaparin Sodium 100 mg Q12HR SC 11/07/25 22:00 11/13/25 10:04 100 MG Lorazepam 1 mg ONCE PRN IV 11/07/25 11:15 Atorvastatin Calcium 40 mg HS PO 11/08/25 22:00 11/12/25 21:29 40 MG Metoprolol Succinate 25 mg DAILY PO 11/10/25 10:00 11/13/25 10:05 25 MG Losartan Potassium 50 mg DAILY PO 11/10/25 10:00 11/13/25 10:05 50 MG Throat Lozenges 1 marsha Q2HP PRN MT 11/10/25 14:00 11/11/25 10:48 1 MARSHA Examination Examination General: The patient alert and oriented in person place and time. Patient following commands HEENT: Normocephalic, atraumatic, normal reactive pupils, EOM intact, pink conjunctiva, pink moist mucous membrane Respiratory/pulmonary: Bilateral chest expansion, no pain on palpation of chest wall, clear lungs bilaterally, vesicular murmurs present in almost all lung stone, no associated crackles or wheezes. Cardiovascular: Normal RRR, normal S1 and S2, no murmurs Abdomen: Abdomen nondistended, normal bowel sounds, soft, there is no pain to palpation in any of the abdominal quadrants, no palpable masses. Extremities: No deformities, no edema is observed, painful to palpation of bilateral calves Skin: No rashes or pruritus, there is no sacral edema present at this time. Neurological: Intact cranial nerves, sensation and strength intact in upper extremities, sensation and strength intact in lower extremity, strength 1/5 in right foot and calf, sensation intact in right calf, sensation decreased in right foot, improved strength in right thigh laboratory and microbiology Laboratory Tests 11/12/25 04:40 11/11/25 04:39 Test 11/12/25 04:40 Range/Units Serum Glucose 99 74-106 mg/dL Labs and/or images reviewed: Labs reviewed by me, Image(s) reviewed by me Problem List/Assessment/Plan Problem List/Assessment/Plan Assessment and plan: Bilateral pulmonary embolism - CTA head and neck: Visualized portions of the pulmonary arteries demonstrate acute pulmonary bilateral pulmonary emboli involving the distal right main pulmonary artery and extending into the visualized proximal branches and in the left interlobar artery extending into the lingular and lower lobar branches as well as pulmonary embolism in the visualized portions of the left upper lobar pulmonary artery. - Therapeutic Lovenox - Supplemental O2 via NC - Echocardiogram 11/08/2025: Normal left ventricular systolic function with estimated ejection fraction of 55-60%. Normal LV wall motion. Positive bubble study for interatrial right to left shunting suggestive of possible PFO - POCUS: No right heart strain DVT ruled out - Bilateral lower extremity venous duplex US: No femoropopliteal deep vein thrombosis Possible PFO - Echocardiogram 11/08/2025: Normal left ventricular systolic function with estimated ejection fraction of 55-60%. Normal LV wall motion. Positive bubble study for interatrial right to left shunting suggestive of possible PFO - YANICK: Concentric LVH, left atrial enlargement, mitral tricuspid and aortic are structurally normal. The pulmonic is not clearly visualized, left ventricular systolic performance is preserved at 60%. Normal RV function, trace mitral insufficiency, mild tricuspid regurgitation, bubble study is within normal limits without crossover Acute ischemic stroke with right sided lower extremity weakness - Brain MRI: Foci of acute ischemia within the high left parietal lobe - Per neurology: Recommend supportive treatment, telemetry, MRI brain, MRI lumbar spine, carotid Doppler, echocardiogram, anticoagulation with Lovenox therapeutic dose, Lipitor 20 mg daily Severe neural foraminal stenosis - L spine MRI: Moderate lumbar degenerative disc disease, 4 mm anterolisthesis L4 upon L5, severe neural foraminal stenosis at L4 and L5 Hypertensive heart disease - Losartan 50 mg PO daily - Metoprolol succinate 25 mg p.o. daily Hyperlipidemia - Atorvastatin 40 mg PO HS Anxiety/depression Essential tremor Morbid obesity, BMI 40.1 kg/m2 services mgr consult has been placed for SNF for PT, as recommended by Physical therapy. DVT prophylaxis: Patient is on therapeutic lovenox GI prophylaxis: Not indicated Diet: Cardiac Goals of care discussed with the patient and her , Ronal, at bedside for over 25 minutes. FULL CODE Case discussed with Dr. Kwong Plan discussed with: Patient, Other (RN) My Orders My Orders Orders - KELLI HALE Procedure Category Date Status Time Discontinue Tele ANA LILIA 11/12/25 In Process 17:15 Transfer Orders XFER 11/12/25 Transmitted 17:15 Visit Coding STANDARD RES Billing Provider: CAROLINE KWONG MD Date of Service if different f: Nov 13, 2025 Common Visit Codes: [id number] INP/OBS CARE(MOD) KELLI HALE Nov 13, 2025 16:37 CAROLINE KWONG MD Nov 19, 2025 15:52
[2025-11-13 16:42] VITALS: BP 129/74; PULSE 69; RESP 19; TEMP 98.1; O2SAT 93
[2025-11-13 21:00] VITALS: BP 119/70; PULSE 77; RESP 18; TEMP 98.2; O2SAT 96
[2025-11-14 01:00] VITALS: BP 122/74; PULSE 76; RESP 18; TEMP 98; O2SAT 99
[2025-11-14 05:00] VITALS: BP 131/55; PULSE 94; RESP 18; TEMP 98.2; O2SAT 98
[2025-11-14 09:00] VITALS: BP 113/55; PULSE 79; RESP 18; TEMP 97.6; O2SAT 96
[2025-11-14 13:00] VITALS: BP 120/69; PULSE 74; RESP 20; TEMP 97.6; O2SAT 99
--- NOTE | 2025-11-14 13:20 | DVHPNRES ---
Progress Note Date Seen: Nov 14, 2025 Resident Creating Document: DORIAN GRIFFIN RESIDENT Medical Necessity Reason Pt with a Central, PICC or Fol: No Subjective Review of Systems Ms. Jackson is a 70 year old female with PMHx of Anxiety, hypertension, hyperlipidemia, arthritis, essential tremors, and blood clot in left lower leg in 2017, who presented to [facility] with chief complaint of pain, weakness, and numbness of her right leg after a fall. The patient states she was getting out of bed yesterday morning when she got dizzy and fell landing on bilateral knees. She states she immediately had sharp right sided pain, 10/10 intensity, without aggravating or relieving factors associated with numbness and weakness rending her unable to stand up on her own. She denies head trauma, loss of consciousness, nausea, vomiting, palpitations, or chest pain. Due to persistence of weakness and pain, she presented to the ED for evaluation in the ED. On evaluation in the ED, she was afebrile, normocardic, normotensive, and saturating adequately on room air. 12 lead EKG shows sinus rhythm with possible anterior fascicular block. Initial labs are significant for mild leukocytosis and decreased aPTT. Head CT shows no acute intracranial findings. Lower extremity arterial US shows no hemodynamically significant stenosis. The patient was admitted for further work up and monitoring. On admission, CT angio of head and neck showed presence of bilateral pulmonary embolism for which she was started on therapeutic lovenox. She was evaluated by neurology who recommended MRI brain and spine. MRI brain was significant for small foci of acute ischemia within the high left parietal lobe. Patient was evaluated by cardiology, echocardiogram was performed showing positive bubble study for intra-arterial right to left shunting suggestive of possible PFO. PMHx: Anxiety, hypertension, hyperlipidemia, arthritis, essential tremors, blood clots, 3 early term miscarriages PSHx: Left ankle ORIF Allergies: [place] oil, avocado, banana Social history: Refers she smoked cigarettes for 15 years with cessation 15 years ago PCP: Dr. Ding 11/14/2025: Patient seen at bedside. Per nurse, no overnight events to report. She is afebrile, normocardic, normotensive, and saturating adequately on room air. Continues to work with PT. She is pending SNF for PT. Objective vital signs Vital Sign Date Time Temp Pulse Resp B/P (MAP) Pulse Ox O2 Delivery O2 Flow Rate FiO2 11/14/25 11:02 79 113/55 11/14/25 09:00 97.6 18 96 97.6 11/14/25 08:00 Room Air* 0 21 Total Intake and Output 11/13/25 11/13/25 11/14/25 15:00 23:00 07:00 Intake Total 1000 ml 600 ml Balance 1000 ml 600 ml medications Current Medications Medications Dose Ordered Sig/Pao Route Start Time Stop Time Status Last Admin Dose Admin Acetaminophen 650 mg Q6HP PRN PO 11/07/25 05:45 11/11/25 20:52 650 MG Acetaminophen/ Hydrocodone Bitart 1 tab Q6HPRN PRN PO 11/07/25 06:45 11/13/25 21:23 1 TAB Acetaminophen 650 mg Q6HR PO 11/07/25 12:00 Cancel Enoxaparin Sodium 100 mg Q12HR SC 11/07/25 22:00 11/14/25 11:04 100 MG Lorazepam 1 mg ONCE PRN IV 11/07/25 11:15 Atorvastatin Calcium 40 mg HS PO 11/08/25 22:00 11/13/25 21:22 40 MG Metoprolol Succinate 25 mg DAILY PO 11/10/25 10:00 11/14/25 11:02 25 MG Losartan Potassium 50 mg DAILY PO 11/10/25 10:00 11/14/25 10:59 50 MG Throat Lozenges 1 marsha Q2HP PRN MT 11/10/25 14:00 11/11/25 10:48 1 MARSHA Examination General: The patient alert and oriented in person place and time. Patient following commands HEENT: Normocephalic, atraumatic, normal reactive pupils, EOM intact, pink conjunctiva, pink moist mucous membrane Respiratory/pulmonary: Bilateral chest expansion, no pain on palpation of chest wall, clear lungs bilaterally, vesicular murmurs present in almost all lung stone, no associated crackles or wheezes. Cardiovascular: Normal RRR, normal S1 and S2, no murmurs Abdomen: Abdomen nondistended, normal bowel sounds, soft, there is no pain to palpation in any of the abdominal quadrants, no palpable masses. Extremities: No deformities, no edema is observed, painful to palpation of bilateral calves Skin: No rashes or pruritus, there is no sacral edema present at this time. Neurological: Intact cranial nerves, sensation and strength intact in upper extremities, sensation and strength intact in lower extremity, strength 1/5 in right foot and calf, sensation intact in right calf, sensation decreased in right foot, improved strength in right thigh laboratory and microbiology Laboratory Tests 11/12/25 04:40 11/11/25 04:39 Test 11/12/25 04:40 Range/Units Serum Glucose 99 74-106 mg/dL Problem List/Assessment/Plan Problem List/Assessment/Plan Assessment and plan: Bilateral pulmonary embolism - CTA head and neck: Visualized portions of the pulmonary arteries demonstrate acute pulmonary bilateral pulmonary emboli involving the distal right main pulmonary artery and extending into the visualized proximal branches and in the left interlobar artery extending into the lingular and lower lobar branches as well as pulmonary embolism in the visualized portions of the left upper lobar pulmonary artery. - Therapeutic Lovenox - Supplemental O2 via NC - Echocardiogram 11/08/2025: Normal left ventricular systolic function with estimated ejection fraction of 55-60%. Normal LV wall motion. Positive bubble study for interatrial right to left shunting suggestive of possible PFO - POCUS: No right heart strain DVT ruled out - Bilateral lower extremity venous duplex US: No femoropopliteal deep vein thrombosis Possible PFO - Echocardiogram 11/08/2025: Normal left ventricular systolic function with estimated ejection fraction of 55-60%. Normal LV wall motion. Positive bubble study for interatrial right to left shunting suggestive of possible PFO - YANICK: Concentric LVH, left atrial enlargement, mitral tricuspid and aortic are structurally normal. The pulmonic is not clearly visualized, left ventricular systolic performance is preserved at 60%. Normal RV function, trace mitral insufficiency, mild tricuspid regurgitation, bubble study is within normal limits without crossover Acute ischemic stroke with right sided lower extremity weakness - Brain MRI: Foci of acute ischemia within the high left parietal lobe - Per neurology: Recommend supportive treatment, telemetry, MRI brain, MRI lumbar spine, carotid Doppler, echocardiogram, anticoagulation with Lovenox therapeutic dose, Lipitor 20 mg daily Severe neural foraminal stenosis - L spine MRI: Moderate lumbar degenerative disc disease, 4 mm anterolisthesis L4 upon L5, severe neural foraminal stenosis at L4 and L5 Hypertension - Losartan 50 mg PO daily Hyperlipidemia - Atorvastatin 40 mg PO HS Anxiety/depression Essential tremor - Propranolol 60 mg PO daily - Per cardiology, transition from propranolol to metoprolol Morbid obesity, BMI 40.1 kg/m2 Patient is pending SNF for PT. DVT prophylaxis: Patient is on therapeutic lovenox GI prophylaxis: Not indicated Diet: Cardiac Goals of care discussed with the patient and her , Ronal, at bedside for over 25 minutes. FULL CODE Case discussed with Dr. Kwong Plan discussed with: Patient, Spouse, Other (Nurse) Dietary Evaluation Review Comments: Monitor PO intake, lab values, weight trend, and I/O Expected Outcomes/Goals: Intake to meet >75% estimated needs FU 3-5 days Visit Coding STANDARD RES Billing Provider: CAROLINE KWONG MD Date of Service if different f: Nov 14, 2025 Common Visit Codes: [id number] INP/OBS CARE(MOD) DORIAN GRIFFIN RESIDENT Nov 14, 2025 13:20 CAROLINE KWONG MD Nov 19, 2025 15:59
[2025-11-14 17:00] VITALS: BP 123/77; PULSE 89; RESP 18; TEMP 96.8; O2SAT 96
[2025-11-14 20:58] VITALS: BP 106/72; PULSE 91; RESP 18; TEMP 98.2; O2SAT 95
[2025-11-15] VITALS (7 sets, daily range): BP systolic 111–133; BP diastolic 53–83; PULSE 4–87; RESP 17–20; TEMP 97–98.5; O2SAT 95–98
--- NOTE | 2025-11-15 15:39 | DVHPNRES ---
Progress Note Date Seen: Nov 15, 2025 Resident Creating Document: DORIAN GRIFFIN RESIDENT Medical Necessity Reason Pt with a Central, PICC or Fol: No Subjective Review of Systems Ms. Jackson is a 70 year old female with PMHx of Anxiety, hypertension, hyperlipidemia, arthritis, essential tremors, and blood clot in left lower leg in 2017, who presented to [facility] with chief complaint of pain, weakness, and numbness of her right leg after a fall. The patient states she was getting out of bed yesterday morning when she got dizzy and fell landing on bilateral knees. She states she immediately had sharp right sided pain, 10/10 intensity, without aggravating or relieving factors associated with numbness and weakness rending her unable to stand up on her own. She denies head trauma, loss of consciousness, nausea, vomiting, palpitations, or chest pain. Due to persistence of weakness and pain, she presented to the ED for evaluation in the ED. On evaluation in the ED, she was afebrile, normocardic, normotensive, and saturating adequately on room air. 12 lead EKG shows sinus rhythm with possible anterior fascicular block. Initial labs are significant for mild leukocytosis and decreased aPTT. Head CT shows no acute intracranial findings. Lower extremity arterial US shows no hemodynamically significant stenosis. The patient was admitted for further work up and monitoring. On admission, CT angio of head and neck showed presence of bilateral pulmonary embolism for which she was started on therapeutic lovenox. She was evaluated by neurology who recommended MRI brain and spine. MRI brain was significant for small foci of acute ischemia within the high left parietal lobe. Patient was evaluated by cardiology, echocardiogram was performed showing positive bubble study for intra-arterial right to left shunting suggestive of possible PFO. PMHx: Anxiety, hypertension, hyperlipidemia, arthritis, essential tremors, blood clots, 3 early term miscarriages PSHx: Left ankle ORIF Allergies: [place] oil, avocado, banana Social history: Refers she smoked cigarettes for 15 years with cessation 15 years ago PCP: Dr. Ding 11/15/2025: Patient seen at bedside. She states she is well. She is afebrile, normocardic, normotensive, and saturating adequately on room air. She continues have PT. She is pending SNF placement. Objective vital signs Vital Sign Date Time Temp Pulse Resp B/P (MAP) Pulse Ox O2 Delivery O2 Flow Rate FiO2 11/15/25 13:00 97.0 4 20 128/83 (98) 98 97.0 11/14/25 20:00 Room Air* 0 21 Total Intake and Output 11/14/25 11/14/25 11/15/25 15:00 23:00 07:00 Intake Total 1300 ml 750 ml Output Total 600 ml Balance 700 ml 750 ml medications Current Medications Medications Dose Ordered Sig/Pao Route Start Time Stop Time Status Last Admin Dose Admin Acetaminophen 650 mg Q6HP PRN PO 11/07/25 05:45 11/11/25 20:52 650 MG Acetaminophen/ Hydrocodone Bitart 1 tab Q6HPRN PRN PO 11/07/25 06:45 11/15/25 10:48 1 TAB Acetaminophen 650 mg Q6HR PO 11/07/25 12:00 Cancel Enoxaparin Sodium 100 mg Q12HR SC 11/07/25 22:00 11/15/25 10:48 100 MG Lorazepam 1 mg ONCE PRN IV 11/07/25 11:15 Atorvastatin Calcium 40 mg HS PO 11/08/25 22:00 11/14/25 21:07 40 MG Metoprolol Succinate 25 mg DAILY PO 11/10/25 10:00 11/15/25 10:47 25 MG Losartan Potassium 50 mg DAILY PO 11/10/25 10:00 11/15/25 10:47 50 MG Throat Lozenges 1 marsha Q2HP PRN MT 11/10/25 14:00 11/11/25 10:48 1 MARSHA Examination General: The patient alert and oriented in person place and time. Patient following commands HEENT: Normocephalic, atraumatic, normal reactive pupils, EOM intact, pink conjunctiva, pink moist mucous membrane Respiratory/pulmonary: Bilateral chest expansion, no pain on palpation of chest wall, clear lungs bilaterally, vesicular murmurs present in almost all lung stone, no associated crackles or wheezes. Cardiovascular: Normal RRR, normal S1 and S2, no murmurs Abdomen: Abdomen nondistended, normal bowel sounds, soft, there is no pain to palpation in any of the abdominal quadrants, no palpable masses. Extremities: No deformities, no edema is observed, painful to palpation of bilateral calves Skin: No rashes or pruritus, there is no sacral edema present at this time. Neurological: Intact cranial nerves, sensation and strength intact in upper extremities, sensation and strength intact in lower extremity, strength 1/5 in right foot and calf, sensation intact in right calf, sensation decreased in right foot, improved strength in right thigh and calf laboratory and microbiology Laboratory Tests 11/12/25 04:40 11/11/25 04:39 Test 11/12/25 04:40 Range/Units Serum Glucose 99 74-106 mg/dL Problem List/Assessment/Plan Problem List/Assessment/Plan Assessment and plan: Bilateral pulmonary embolism - CTA head and neck: Visualized portions of the pulmonary arteries demonstrate acute pulmonary bilateral pulmonary emboli involving the distal right main pulmonary artery and extending into the visualized proximal branches and in the left interlobar artery extending into the lingular and lower lobar branches as well as pulmonary embolism in the visualized portions of the left upper lobar pulmonary artery. - Therapeutic Lovenox - Supplemental O2 via NC - Echocardiogram 11/08/2025: Normal left ventricular systolic function with estimated ejection fraction of 55-60%. Normal LV wall motion. Positive bubble study for interatrial right to left shunting suggestive of possible PFO - POCUS: No right heart strain DVT ruled out - Bilateral lower extremity venous duplex US: No femoropopliteal deep vein thrombosis Possible PFO - Echocardiogram 11/08/2025: Normal left ventricular systolic function with estimated ejection fraction of 55-60%. Normal LV wall motion. Positive bubble study for interatrial right to left shunting suggestive of possible PFO - YANICK: Concentric LVH, left atrial enlargement, mitral tricuspid and aortic are structurally normal. The pulmonic is not clearly visualized, left ventricular systolic performance is preserved at 60%. Normal RV function, trace mitral insufficiency, mild tricuspid regurgitation, bubble study is within normal limits without crossover Acute ischemic stroke with right sided lower extremity weakness - Brain MRI: Foci of acute ischemia within the high left parietal lobe - Per neurology: Recommend supportive treatment, telemetry, MRI brain, MRI lumbar spine, carotid Doppler, echocardiogram, anticoagulation with Lovenox therapeutic dose, Lipitor 20 mg daily Severe neural foraminal stenosis - L spine MRI: Moderate lumbar degenerative disc disease, 4 mm anterolisthesis L4 upon L5, severe neural foraminal stenosis at L4 and L5 Hypertension - Losartan 50 mg PO daily Hyperlipidemia - Atorvastatin 40 mg PO HS Anxiety/depression Essential tremor - Propranolol 60 mg PO daily - Per cardiology, transition from propranolol to metoprolol Morbid obesity, BMI 40.1 kg/m2 Patient is pending SNF for PT. DVT prophylaxis: Patient is on therapeutic lovenox GI prophylaxis: Not indicated Diet: Cardiac Goals of care discussed with the patient and her , Ronal, at bedside for over 23 minutes. FULL CODE Case discussed with Dr. Kwong Plan discussed with: Patient, Other (Nurse) Dietary Evaluation Review Comments: Monitor PO intake, lab values, weight trend, and I/O Expected Outcomes/Goals: Intake to meet >75% estimated needs FU 3-5 days Visit Coding STANDARD RES Billing Provider: CAROLINE KWONG MD Date of Service if different f: Nov 15, 2025 Common Visit Codes: [id number] INP/OBS CARE(MOD) DORIAN GRIFFIN RESIDENT Nov 15, 2025 15:39 CAROLINE KWONG MD Nov 20, 2025 13:54
[2025-11-16] VITALS (7 sets, daily range): BP systolic 112–128; BP diastolic 60–74; PULSE 75–84; RESP 17–20; TEMP 97.6–98.3; O2SAT 90–96
--- NOTE | 2025-11-16 10:45 | DVHPNRES ---
Progress Note Date Seen: Nov 16, 2025 Resident Creating Document: DORIAN GRIFFIN RESIDENT Medical Necessity Reason Pt with a Central, PICC or Fol: No Subjective Review of Systems Ms. Jackson is a 70 year old female with PMHx of Anxiety, hypertension, hyperlipidemia, arthritis, essential tremors, and blood clot in left lower leg in 2017, who presented to [facility] with chief complaint of pain, weakness, and numbness of her right leg after a fall. The patient states she was getting out of bed yesterday morning when she got dizzy and fell landing on bilateral knees. She states she immediately had sharp right sided pain, 10/10 intensity, without aggravating or relieving factors associated with numbness and weakness rending her unable to stand up on her own. She denies head trauma, loss of consciousness, nausea, vomiting, palpitations, or chest pain. Due to persistence of weakness and pain, she presented to the ED for evaluation in the ED. On evaluation in the ED, she was afebrile, normocardic, normotensive, and saturating adequately on room air. 12 lead EKG shows sinus rhythm with possible anterior fascicular block. Initial labs are significant for mild leukocytosis and decreased aPTT. Head CT shows no acute intracranial findings. Lower extremity arterial US shows no hemodynamically significant stenosis. The patient was admitted for further work up and monitoring. On admission, CT angio of head and neck showed presence of bilateral pulmonary embolism for which she was started on therapeutic lovenox. She was evaluated by neurology who recommended MRI brain and spine. MRI brain was significant for small foci of acute ischemia within the high left parietal lobe. Patient was evaluated by cardiology, echocardiogram was performed showing positive bubble study for intra-arterial right to left shunting suggestive of possible PFO. PMHx: Anxiety, hypertension, hyperlipidemia, arthritis, essential tremors, blood clots, 3 early term miscarriages PSHx: Left ankle ORIF Allergies: [place] oil, avocado, banana Social history: Refers she smoked cigarettes for 15 years with cessation 15 years ago PCP: Dr. Ding 11/16/2025: Patient seen at bedside. She states she is well. Denies any headache, chest pain, shortness of breath, abdominal pain, worsened weakness or numbness. She is afebrile, normocardic, normotensive, and saturating adequately on room air. She is improving with PT. Is pending SNF placement with PT. Objective vital signs Vital Sign Date Time Temp Pulse Resp B/P (MAP) Pulse Ox O2 Delivery O2 Flow Rate FiO2 11/16/25 09:25 76 121/60 11/16/25 05:00 97.7 19 96 97.7 11/15/25 20:00 Room Air* 0 21 Total Intake and Output 11/15/25 11/15/25 11/16/25 15:00 23:00 07:00 Intake Total 800 ml 500 ml Balance 800 ml 500 ml medications Current Medications Medications Dose Ordered Sig/Pao Route Start Time Stop Time Status Last Admin Dose Admin Acetaminophen 650 mg Q6HP PRN PO 11/07/25 05:45 11/11/25 20:52 650 MG Acetaminophen 650 mg Q6HR PO 11/07/25 12:00 Cancel Enoxaparin Sodium 100 mg Q12HR SC 11/07/25 22:00 11/16/25 09:27 100 MG Lorazepam 1 mg ONCE PRN IV 11/07/25 11:15 Atorvastatin Calcium 40 mg HS PO 11/08/25 22:00 11/15/25 21:40 40 MG Metoprolol Succinate 25 mg DAILY PO 11/10/25 10:00 11/16/25 09:25 25 MG Losartan Potassium 50 mg DAILY PO 11/10/25 10:00 11/16/25 09:24 50 MG Throat Lozenges 1 marsha Q2HP PRN MT 11/10/25 14:00 11/11/25 10:48 1 MARSHA Examination General: The patient alert and oriented in person place and time. Patient following commands HEENT: Normocephalic, atraumatic, normal reactive pupils, EOM intact, pink conjunctiva, pink moist mucous membrane Respiratory/pulmonary: Bilateral chest expansion, no pain on palpation of chest wall, clear lungs bilaterally, vesicular murmurs present in almost all lung stone, no associated crackles or wheezes. Cardiovascular: Normal RRR, normal S1 and S2, no murmurs Abdomen: Abdomen nondistended, normal bowel sounds, soft, there is no pain to palpation in any of the abdominal quadrants, no palpable masses. Extremities: No deformities, no edema is observed, painful to palpation of bilateral calves Skin: No rashes or pruritus, there is no sacral edema present at this time. Neurological: Intact cranial nerves, sensation and strength intact in upper extremities, sensation and strength intact in lower extremity, strength 1/5 in right foot and calf, sensation intact in right calf, sensation decreased in right foot, improved strength in right thigh and calf laboratory and microbiology Laboratory Tests 11/12/25 04:40 11/11/25 04:39 Test 11/12/25 04:40 Range/Units Serum Glucose 99 74-106 mg/dL Problem List/Assessment/Plan Problem List/Assessment/Plan Assessment and plan: Bilateral pulmonary embolism - CTA head and neck: Visualized portions of the pulmonary arteries demonstrate acute pulmonary bilateral pulmonary emboli involving the distal right main pulmonary artery and extending into the visualized proximal branches and in the left interlobar artery extending into the lingular and lower lobar branches as well as pulmonary embolism in the visualized portions of the left upper lobar pulmonary artery. - Therapeutic Lovenox - Supplemental O2 via NC - Echocardiogram 11/08/2025: Normal left ventricular systolic function with estimated ejection fraction of 55-60%. Normal LV wall motion. Positive bubble study for interatrial right to left shunting suggestive of possible PFO - POCUS: No right heart strain DVT ruled out - Bilateral lower extremity venous duplex US: No femoropopliteal deep vein thrombosis Possible PFO - Echocardiogram 11/08/2025: Normal left ventricular systolic function with estimated ejection fraction of 55-60%. Normal LV wall motion. Positive bubble study for interatrial right to left shunting suggestive of possible PFO - YANICK: Concentric LVH, left atrial enlargement, mitral tricuspid and aortic are structurally normal. The pulmonic is not clearly visualized, left ventricular systolic performance is preserved at 60%. Normal RV function, trace mitral insufficiency, mild tricuspid regurgitation, bubble study is within normal limits without crossover Acute ischemic stroke with right sided lower extremity weakness - Brain MRI: Foci of acute ischemia within the high left parietal lobe - Per neurology: Recommend supportive treatment, telemetry, MRI brain, MRI lumbar spine, carotid Doppler, echocardiogram, anticoagulation with Lovenox therapeutic dose, Lipitor 20 mg daily Severe neural foraminal stenosis - L spine MRI: Moderate lumbar degenerative disc disease, 4 mm anterolisthesis L4 upon L5, severe neural foraminal stenosis at L4 and L5 Hypertension - Losartan 50 mg PO daily Hyperlipidemia - Atorvastatin 40 mg PO HS Anxiety/depression Essential tremor - Propranolol 60 mg PO daily - Per cardiology, transition from propranolol to metoprolol Morbid obesity, BMI 40.1 kg/m2 Patient is pending SNF for PT. DVT prophylaxis: Patient is on therapeutic lovenox GI prophylaxis: Not indicated Diet: Cardiac Goals of care discussed with the patient and her , Ronal, at bedside for over 28 minutes. FULL CODE Case discussed with Dr. Kwong Plan discussed with: Patient, Spouse, Other (Nurse) Dietary Evaluation Review Comments: Monitor PO intake, lab values, weight trend, and I/O Expected Outcomes/Goals: Intake to meet >75% estimated needs FU 3-5 days Visit Coding STANDARD RES Billing Provider: CAROLINE KWONG MD Date of Service if different f: Nov 16, 2025 Common Visit Codes: [id number] INP/OBS CARE(MOD) DORIAN GRIFFIN RESIDENT Nov 16, 2025 10:45 CAROLINE KWONG MD Nov 20, 2025 14:13
[2025-11-17] VITALS (7 sets, daily range): BP systolic 111–139; BP diastolic 61–85; PULSE 67–104; RESP 14–20; TEMP 97–98.2; O2SAT 92–98
--- NOTE | 2025-11-17 16:29 | DVHPN2 ---
Assessment/Plan Assessment/Plan 11/17 medically cleared, pending SNF bed Plan discussed with: Patient Date of Service: Nov 17, 2025 Billing Provider: CAROLINE ZAMORA MD Common Visit Codes: [id number] INP/OBS CARE(LOW), [id number]-UHT/OBS SAME DATE (LOW) CAROLINE ZAMORA MD Nov 17, 2025 16:29
[2025-11-18] VITALS (7 sets, daily range): BP systolic 100–132; BP diastolic 64–86; PULSE 72–86; RESP 16–20; TEMP 97.6–98.2; O2SAT 93–97
--- NOTE | 2025-11-18 17:07 | DVHPNRES ---
Progress Note Date Seen: Nov 18, 2025 Resident Creating Document: DORIAN GRIFFIN RESIDENT Medical Necessity Reason Pt with a Central, PICC or Fol: No Subjective Review of Systems Ms. Jackson is a 70 year old female with PMHx of Anxiety, hypertension, hyperlipidemia, arthritis, essential tremors, and blood clot in left lower leg in 2017, who presented to [facility] with chief complaint of pain, weakness, and numbness of her right leg after a fall. The patient states she was getting out of bed yesterday morning when she got dizzy and fell landing on bilateral knees. She states she immediately had sharp right sided pain, 10/10 intensity, without aggravating or relieving factors associated with numbness and weakness rending her unable to stand up on her own. She denies head trauma, loss of consciousness, nausea, vomiting, palpitations, or chest pain. Due to persistence of weakness and pain, she presented to the ED for evaluation in the ED. On evaluation in the ED, she was afebrile, normocardic, normotensive, and saturating adequately on room air. 12 lead EKG shows sinus rhythm with possible anterior fascicular block. Initial labs are significant for mild leukocytosis and decreased aPTT. Head CT shows no acute intracranial findings. Lower extremity arterial US shows no hemodynamically significant stenosis. The patient was admitted for further work up and monitoring. On admission, CT angio of head and neck showed presence of bilateral pulmonary embolism for which she was started on therapeutic lovenox. She was evaluated by neurology who recommended MRI brain and spine. MRI brain was significant for small foci of acute ischemia within the high left parietal lobe. Patient was evaluated by cardiology, echocardiogram was performed showing positive bubble study for intra-arterial right to left shunting suggestive of possible PFO. PMHx: Anxiety, hypertension, hyperlipidemia, arthritis, essential tremors, blood clots, 3 early term miscarriages PSHx: Left ankle ORIF Allergies: [place] oil, avocado, banana Social history: Refers she smoked cigarettes for 15 years with cessation 15 years ago PCP: Dr. Ding 11/18/2025: Patient seen at bedside. She is well, currently has no complaints. She is pending SNF placement. Due advancements in PT while inpatient, patient may possibly be discharged home tomorrow. Objective vital signs Vital Sign Date Time Temp Pulse Resp B/P (MAP) Pulse Ox O2 Delivery O2 Flow Rate FiO2 11/18/25 16:30 98.2 86 16 114/86 (95) 97 98.2 11/18/25 08:00 Room Air* 0 21 Total Intake and Output 11/17/25 11/17/25 11/18/25 15:00 23:00 07:00 Intake Total 1600 ml 300 ml Balance 1600 ml 300 ml medications Current Medications Medications Dose Ordered Sig/Pao Route Start Time Stop Time Status Last Admin Dose Admin Acetaminophen 650 mg Q6HP PRN PO 11/07/25 05:45 11/18/25 10:20 650 MG Acetaminophen 650 mg Q6HR PO 11/07/25 12:00 Cancel Enoxaparin Sodium 100 mg Q12HR SC 11/07/25 22:00 11/18/25 09:30 100 MG Lorazepam 1 mg ONCE PRN IV 11/07/25 11:15 Atorvastatin Calcium 40 mg HS PO 11/08/25 22:00 11/17/25 21:13 40 MG Metoprolol Succinate 25 mg DAILY PO 11/10/25 10:00 11/18/25 09:31 25 MG Losartan Potassium 50 mg DAILY PO 11/10/25 10:00 11/18/25 09:32 50 MG Throat Lozenges 1 marsha Q2HP PRN MT 11/10/25 14:00 11/11/25 10:48 1 MARSHA Examination General: The patient alert and oriented in person place and time. Patient following commands HEENT: Normocephalic, atraumatic, normal reactive pupils, EOM intact, pink conjunctiva, pink moist mucous membrane Respiratory/pulmonary: Bilateral chest expansion, no pain on palpation of chest wall, clear lungs bilaterally, vesicular murmurs present in almost all lung stone, no associated crackles or wheezes. Cardiovascular: Normal RRR, normal S1 and S2, no murmurs Abdomen: Abdomen nondistended, normal bowel sounds, soft, there is no pain to palpation in any of the abdominal quadrants, no palpable masses. Extremities: No deformities, no edema is observed, painful to palpation of bilateral calves Skin: No rashes or pruritus, there is no sacral edema present at this time. Neurological: Intact cranial nerves, sensation and strength intact in upper extremities, sensation and strength intact in lower extremity, strength 1/5 in right foot and calf, sensation intact in right calf, sensation decreased in right foot, improved strength in right thigh and calf laboratory and microbiology Laboratory Tests 11/12/25 04:40 11/11/25 04:39 Test 11/12/25 04:40 Range/Units Serum Glucose 99 74-106 mg/dL Problem List/Assessment/Plan Problem List/Assessment/Plan Assessment and plan: Bilateral pulmonary embolism - CTA head and neck: Visualized portions of the pulmonary arteries demonstrate acute pulmonary bilateral pulmonary emboli involving the distal right main pulmonary artery and extending into the visualized proximal branches and in the left interlobar artery extending into the lingular and lower lobar branches as well as pulmonary embolism in the visualized portions of the left upper lobar pulmonary artery. - Therapeutic Lovenox - Supplemental O2 via NC - Echocardiogram 11/08/2025: Normal left ventricular systolic function with estimated ejection fraction of 55-60%. Normal LV wall motion. Positive bubble study for interatrial right to left shunting suggestive of possible PFO - POCUS: No right heart strain DVT ruled out - Bilateral lower extremity venous duplex US: No femoropopliteal deep vein thrombosis Possible PFO - Echocardiogram 11/08/2025: Normal left ventricular systolic function with estimated ejection fraction of 55-60%. Normal LV wall motion. Positive bubble study for interatrial right to left shunting suggestive of possible PFO - YANICK: Concentric LVH, left atrial enlargement, mitral tricuspid and aortic are structurally normal. The pulmonic is not clearly visualized, left ventricular systolic performance is preserved at 60%. Normal RV function, trace mitral insufficiency, mild tricuspid regurgitation, bubble study is within normal limits without crossover Acute ischemic stroke with right sided lower extremity weakness - Brain MRI: Foci of acute ischemia within the high left parietal lobe - Per neurology: Recommend supportive treatment, telemetry, MRI brain, MRI lumbar spine, carotid Doppler, echocardiogram, anticoagulation with Lovenox therapeutic dose, Lipitor 20 mg daily Severe neural foraminal stenosis - L spine MRI: Moderate lumbar degenerative disc disease, 4 mm anterolisthesis L4 upon L5, severe neural foraminal stenosis at L4 and L5 Hypertension - Losartan 50 mg PO daily Hyperlipidemia - Atorvastatin 40 mg PO HS Anxiety/depression Essential tremor - Propranolol 60 mg PO daily - Per cardiology, transition from propranolol to metoprolol Morbid obesity, BMI 40.1 kg/m2 Patient is pending SNF for PT. DVT prophylaxis: Patient is on therapeutic lovenox GI prophylaxis: Not indicated Diet: Cardiac Goals of care discussed with the patient and her , Ronal, at bedside for over 29 minutes. FULL CODE Case discussed with Dr. Kwong Plan discussed with: Patient, Spouse, Son, Other (Nurse ) Dietary Evaluation Review Comments: Monitor PO intake, lab values, weight trend, and I/O Expected Outcomes/Goals: Intake to meet >75% estimated needs FU 3-5 days Visit Coding STANDARD RES Billing Provider: CAROLINE KWONG MD Date of Service if different f: Nov 18, 2025 Common Visit Codes: [id number] INP/OBS CARE(MOD) DORIAN GRIFFIN RESIDENT Nov 18, 2025 17:07 CAROLINE KWONG MD Nov 20, 2025 14:37
[2025-11-19 01:00] VITALS: BP 123/57; PULSE 77; RESP 17; TEMP 98.1; O2SAT 95
[2025-11-19 05:00] VITALS: BP 156/93; PULSE 72; RESP 18; TEMP 98.1; O2SAT 95
[2025-11-19] MEDS ORDERED: APIX5TAB PO (08:21)
[2025-11-19] MEDS ORDERED: ASPI1TAB20 PO (08:21)
[2025-11-19] MEDS ORDERED: ATOR20TA50 PO (08:21)
[2025-11-19] MEDS ORDERED: METO-6 PO (08:21)
[2025-11-19] MEDS ORDERED: LOSA-534 PO (08:21)
[2025-11-19 08:34] VITALS: BP 131/81; PULSE 64; RESP 16; TEMP 97.9; O2SAT 95
[2025-11-19 13:00] VITALS: BP 109/79; PULSE 73; RESP 20; TEMP 98; O2SAT 96
--- NOTE | 2025-11-19 19:02 | DVHDSRES ---
Discharge Summary Date of Admission Resident Creating Document: DORIAN GRIFFIN RESIDENT Nov 07, 2025 at 05:38 Date of Discharge: Nov 19, 2025 Admitting Diagnosis Right leg weakness Wounds: No wounds Labs/Diagnostic Data: Laboratory Results Test 11/12/25 04:40 11/11/25 04:39 11/08/25 04:40 11/07/25 21:30 Sodium Level 142 mmol/L (136-145) Potassium Level 3.8 mmol/L (3.5-5.1) Chloride Level 107 mmol/L (98-107) Carbon Dioxide Level 27 mmol/L (20-31) Anion Gap 8 (5-15) Blood Urea Nitrogen 11 mg/dL (9-23) Creatinine 0.78 mg/dL (0.550-1.02) Glomerular Filtration Rate Calc 82 mL/min (>90) BUN/Creatinine Ratio 14.1 (10.0-20.0) Serum Glucose 99 mg/dL (74-106) Calcium Level 9.4 mg/dL (8.7-10.4) Magnesium Level 1.9 mg/dL (1.6-2.6) White Blood Count 9.3 10^3/uL (4.4-10.8) Red Blood Count 4.12 10^6/uL (4.0-5.20) Hemoglobin 13.7 g/dL (12.2-16.2) Hematocrit 39.5 % (36.0-46.0) Mean Corpuscular Volume 95.8 fL (80.0-100.0) Mean Corpuscular Hemoglobin 33.3 pg (28.0-32.0) Mean Corpuscular Hemoglobin Concent 34.8 g/dL (32.0-36.0) Red Cell Distribution Width 14.2 % (11.8-14.3) Platelet Count 197 10^3/uL (140-450) Mean Platelet Volume 8.3 fL (6.9-10.8) Neutrophils (%) (Auto) 56.9 % (37.0-80.0) Lymphocytes (%) (Auto) 30.6 % (10.0-50.0) Monocytes (%) (Auto) 10.7 % (0.0-12.0) Eosinophils (%) (Auto) 1.4 % (0.0-7.0) Basophils (%) (Auto) 0.4 % (0.0-2.0) Neutrophils # (Auto) 5.3 10 ^3/uL (1.6-8.6) Lymphocytes # (Auto) 2.9 10 ^3/uL (0.4-5.4) Monocytes # (Auto) 1.0 10 ^3/uL (0-1.3) Eosinophils # (Auto) 0.1 10 ^3/uL (0-0.8) Basophils # (Auto) 0 10 ^3/uL (0-0.2) Nucleated Red Blood Cells 0.0 % Hemoglobin A1c 5.6 % A1C (<5.7) Total Bilirubin 0.7 mg/dL (0.2-1.0) Aspartate Amino Transferase (AST) 25 U/L (13-40) Alanine Aminotransferase (ALT) 24 U/L (7-40) Alkaline Phosphatase 84 U/L (46-116) Total Protein 6.3 g/dL (5.7-8.2) Albumin 3.8 g/dL (3.2-4.8) Urine Color Yellow (Yellow) Urine Clarity Clear (Clear) Urine pH 6.0 (5.0-9.0) Urine Specific [place] > 1.050 (1.001-1.035) Urine Protein Trace (Negative) Urine Ketones 1+ (Negative) Urine Blood Negative /uL (Negative) Urine Nitrite Negative (Negative) Urine Bilirubin Negative (Negative) Urine Urobilinogen Normal mg/dL (Negative) Urine Leukocyte Esterase Negative /uL (Negative) Urine RBC 4 /hpf (0 - 4) Urine Microscopic WBC 5 /HPF (0-5) Urine Squamous Epithelial Cells Few /hpf (<5) Urine Bacteria Few /hpf (None Seen) Urine Mucus Few (None Seen) Urine Glucose Normal mg/dL (Normal) Urine Opiates Screen Neg (NEGATIVE) Urine Fentanyl Screen Neg (NEGATIVE) Urine Barbiturates Screen Neg (NEGATIVE) Urine Phencyclidine Screen Neg (NEGATIVE) Urine Amphetamines Screen Neg (NEGATIVE) Urine Benzodiazepines Screen Neg (NEGATIVE) Urine Cocaine Screen Neg (NEGATIVE) Urine Cannabinoids Screen Neg (NEGATIVE) Test 11/07/25 12:48 11/07/25 10:24 11/07/25 06:58 11/06/25 22:11 Prothrombin Time Diluted 39.6 sec (0.0-47.6) Dilute PT Confirmation Ratio 0.93 Ratio (0.00-1.34) Thrombin Time 22.6 sec (0.0-23.0) Lupus Anticoagulant PTT 34.1 sec (0.0-43.5) Dilute Royer Viper Venom (Lupus) 45.0 sec (0.0-47.0) Lupus Anticoagulant Interpretation Comment: (.) Anti-Cardiolipin IgG Antibody <9 GPL U/mL (0-14) Lactic Acid Level 1.4 mmol/L (0.4-2.0) Triglycerides Level 174 mg/dL (< 150) Cholesterol Level 171 mg/dL (< 200) LDL Cholesterol 99 mg/dL (< 100) HDL Cholesterol 47 mg/dL (40-59) Prothrombin Time 10.9 sec (9.3-11.8) Prothrombin Time INR 1.03 (0.9-1.15) Activated Partial Thromboplast Time 22.8 SEC (24.5-34.5) Troponin I High Sensitivity 6 ng/L (</=34) B-Type Natriuretic Peptide 98.04 pg/mL (0-100) Other Laboratory Tests 11/12/25 04:40 11/11/25 04:39 Brief Hx & Hospital Course: Ms. Jackson is a 70 year old female with PMHx of Anxiety, hypertension, hyperlipidemia, arthritis, essential tremors, and blood clot in left lower leg in 2017, who presented to [facility] with chief complaint of pain, weakness, and numbness of her right leg after a fall. The patient states she was getting out of bed yesterday morning when she got dizzy and fell landing on bilateral knees. She states she immediately had sharp right sided pain, 10/10 intensity, without aggravating or relieving factors associated with numbness and weakness rending her unable to stand up on her own. She denies head trauma, loss of consciousness, nausea, vomiting, palpitations, or chest pain. Due to persistence of weakness and pain, she presented to the ED for evaluation in the ED. On evaluation in the ED, she was afebrile, normocardic, normotensive, and saturating adequately on room air. 12 lead EKG shows sinus rhythm with possible anterior fascicular block. Initial labs are significant for mild leukocytosis and decreased aPTT. Head CT shows no acute intracranial findings. Lower extremity arterial US shows no hemodynamically significant stenosis. The patient was admitted for further work up and monitoring. On admission, CT angio of head and neck showed presence of bilateral pulmonary embolism for which she was started on therapeutic lovenox. She was evaluated by neurology who recommended MRI brain and spine. MRI brain was significant for small foci of acute ischemia within the high left parietal lobe. Patient was evaluated by cardiology, echocardiogram was performed showing positive bubble study for intra-arterial right to left shunting suggestive of possible PFO. Patient was taken for YANICK which showed Concentric LVH, left atrial enlargement, mitral tricuspid and aortic are structurally normal. The pulmonic is not clearly visualized, left ventricular systolic performance is preserved at 60%. Normal RV function, trace mitral insufficiency, mild tricuspid regurgitation, bubble study is within normal limits without crossover. SNF for PT was originally requested per PT recommendation. While awaiting approval, the patient continued to undergo physical therapy while inpatient, with marked improvement. Due to lack of response from patient's insurance for SNF and significant improvements with inpatient PT, she was reevaluated by PT who recommended that the patient could be discharged home. Patient stated that she wished to go home. On evaluation today, the patient seemed well, vitals were stable. Due to wheelchair not being delivered to her home before discharge, risks of being without it were relayed to the patient and we recommend she remain until wheelchair is available. She states that she understands the risk but still wishes to go home. She will follow up with her PCP, Dr. Ding, for further monitoring. Medications were sent to her pharmacy. She signed AMA paperwork and subsequently left. Case discussed with Dr. Kwong Consults/Reason for consult Cardiology was consulted for YANICK due to stroke Neurology was consulted due to right leg weakness Operations or Procedures CT STROKE CT INDICATION: Right lower extremity weakness EXAM DATE: 11/06/2025 10:17 PM COMPARISON: None TECHNIQUE: CT of the head without intravenous contrast. RADIATION DOSE: CTDIvol: 55.68 mGy, DLP: 986.02 mGy*cm FINDINGS: There is no evidence of acute intracranial hemorrhage, extra-axial collection, mass effect, midline shift, herniation or hydrocephalus. The ventricles, sulci and cisterns are age appropriate. The malik-white differentiation is intact. The visualized paranasal sinuses and mastoid air cells are clear. There is no evidence of skull fracture. The surrounding soft tissues and osseous structures are unremarkable. IMPRESSION: No evidence of acute intracranial hemorrhage, mass effect, hydrocephalus or skull fracture. Right Lower Extremity Arterial Duplex CLINICAL HISTORY: loss of sensation, cold right foot COMPARISON: None TECHNIQUE: Duplex Doppler evaluation including color Doppler and spectral/pulsed waveform analysis of the right lower extremity arteries was performed. FINDINGS: RIGHT: Peak systolic velocities are as follows: CHIEF OF FIELD OPERATIONS 81 cm/s Deep femoral 57 cm/s SFA proximal 97 cm/s SFA mid-portion 92 cm/s SFA distal 91 cm/s Popliteal 66 cm/s Posterior tibial 73 cm/s Anterior tibial 62 cm/s Dorsalis pedis 62 cm/s The waveforms are triphasic with diastolic flow apart from the posterior tibial and distal dorsalis pedis which are biphasic. IMPRESSION: No hemodynamically significant stenosis based on peak systolic velocity criteria. critical findings Critical Result: Acute bilateral pulmonary emboli. Findings discussed with the charge accounts audit clerkRobyn at 11/07/2025 09:37 AM RUBBER CUTTING MACHINE TENDER, and acknowledged receipt and understanding of the findings and will let the physician taking care of the patient know about the findings. .. ORIGINAL REPORT CLINICAL INFORMATION: Right lower extremity weakness. TECHNIQUE: Axial CTA images of the head and neck were obtained after the uneventful administration of 100 mL Omnipaque 350 IV contrast. Coronal and sagittal reformatted images and MIP images were obtained, reviewed, and stored. Measurements of carotid stenosis are made per NASCET criteria. All CT scans at this medical facility are performed using dose modulation techniques as appropriate to a performed exam including the following: Automated exposure control was utilized; adjustment of the MA and/or KV according to patient size; and use of iterative reconstruction technique. CTDIvol = 25.88 mGy DLP = 846.48 mGy-cm COMPARISON: None FINDINGS: CTA HEAD: Posterior cerebral arteries, basilar artery, and intracranial segments of the distal vertebral arteries are normal in caliber and course with no evidence of aneurysm, large vessel occlusion, significant stenosis, or vascular malformation. The anterior and middle cerebral arteries and intracranial segments of the distal internal carotid arteries are normal in caliber and course with no evidence of aneurysm, large vessel occlusion, significant stenosis, or vascular malformation. CTA NECK: Normal configuration of the aortic arch with patent origins of the brachiocephalic artery, left common carotid artery, and left subclavian artery. Subclavian arteries are patent with no significant stenosis. Mild calcified plaque at the right carotid bifurcation without significant stenosis. The bilateral common carotid, internal carotid, and external carotid arteries are otherwise patent with no significant stenosis or evidence of dissection. Vertebral arteries are patent with no significant stenosis or evidence of dissection. The main pulmonary artery and right and left pulmonary arteries are visualized within the [id number] of the exam. There are filling defects at the distal aspects of the right main pulmonary artery and visualized portions of the proximal lobar branches and in the left interlobar artery extending into the left lower lobe and lingular branches as well as in the left upper lobar pulmonary artery. Degenerative disc disease throughout the cervical spine with multilevel moderate to severe disc space narrowing, endplate sclerosis, and endplate spurring. IMPRESSION: 1. CTA head demonstrates no evidence of large vessel occlusion, aneurysm, or significant stenosis. 2. CTA neck demonstrates no evidence of carotid or vertebral dissection or significant stenosis. 3. Visualized portions of the pulmonary arteries demonstrate acute pulmonary bilateral pulmonary emboli involving the distal right main pulmonary artery and extending into the visualized proximal lobar branches and in the left interlobar artery extending into the lingular and lower lobar branches, as well as pulmonary emboli in the visualized portions of the left upper lobar pulmonary artery. Unable to evaluate for right heart strain within the field of view of this exam. 4. Additional findings as detailed above. The [facility] radiology call center was contacted to facilitate reporting of the critical finding of bilateral pulmonary emboli at 9:30 a.m. RUBBER CUTTING MACHINE TENDER on 11/07/2025. The report will be submitted pending discussion of the critical findings with the ordering physician. ATED BY: INDER TIWARI DO DICTATED DATE/TIME: 11/07/25737 SIGNED BY: INDER TIWARI DO SIGNED DATE/TIME: 11/07/25737 CC: CLINICAL INFORMATION: Right lower extremity weakness. TECHNIQUE: Axial CTA images of the head and neck were obtained after the uneventful administration of 100 mL Omnipaque 350 IV contrast. Coronal and sagittal reformatted images and MIP images were obtained, reviewed, and stored. Measurements of carotid stenosis are made per NASCET criteria. All CT scans at this medical facility are performed using dose modulation techniques as appropriate to a performed exam including the following: Automated exposure control was utilized; adjustment of the MA and/or KV according to patient size; and use of iterative reconstruction technique. CTDIvol = 25.88 mGy DLP = 846.48 mGy-cm COMPARISON: None FINDINGS: CTA HEAD: Posterior cerebral arteries, basilar artery, and intracranial segments of the distal vertebral arteries are normal in caliber and course with no evidence of aneurysm, large vessel occlusion, significant stenosis, or vascular malformation. The anterior and middle cerebral arteries and intracranial segments of the distal internal carotid arteries are normal in caliber and course with no evidence of aneurysm, large vessel occlusion, significant stenosis, or vascular malformation. CTA NECK: Normal configuration of the aortic arch with patent origins of the brachiocephalic artery, left common carotid artery, and left subclavian artery. Subclavian arteries are patent with no significant stenosis. Mild calcified plaque at the right carotid bifurcation without significant stenosis. The bilateral common carotid, internal carotid, and external carotid arteries are otherwise patent with no significant stenosis or evidence of dissection. Vertebral arteries are patent with no significant stenosis or evidence of dissection. The main pulmonary artery and right and left pulmonary arteries are visualized within the [id number]-ai-[id number] of the exam. There are filling defects at the distal aspects of the right main pulmonary artery and visualized portions of the proximal lobar branches and in the left interlobar artery extending into the left lower lobe and lingular branches as well as in the left upper lobar pulmonary artery. Degenerative disc disease throughout the cervical spine with multilevel moderate to severe disc space narrowing, endplate sclerosis, and endplate spurring. IMPRESSION: 1. CTA head demonstrates no evidence of large vessel occlusion, aneurysm, or significant stenosis. 2. CTA neck demonstrates no evidence of carotid or vertebral dissection or significant stenosis. 3. Visualized portions of the pulmonary arteries demonstrate acute pulmonary bilateral pulmonary emboli involving the distal right main pulmonary artery and extending into the visualized proximal lobar branches and in the left interlobar artery extending into the lingular and lower lobar branches, as well as pulmonary emboli in the visualized portions of the left upper lobar pulmonary artery. Unable to evaluate for right heart strain within the field of view of this exam. 4. Additional findings as detailed above. EXAM: XY R KNEE 2V XRAY CLINICAL INDICATION: s/p fall TECHNIQUE: XY R KNEE 2V XRAY COMPARISON: None FINDINGS/IMPRESSION: There is no evidence of acute fracture or dislocation. Advanced right knee authorities. The alignment is anatomical. There is no radiopaque foreign body. Bilateral lower extremity venous duplex CLINICAL HISTORY: Rule out DVT COMPARISON: None TECHNIQUE: Duplex doppler evaluation of the deep venous systems of both lower extremities from the common femoral veins to the popliteal veins including color doppler and spectral/pulsed waveform analysis was performed. FINDINGS: RIGHT SIDE: The common femoral vein demonstrates appropriate compressibility and waveform variability. There is compressibility/patency of the great saphenous vein at the proximal thigh. The femoral vein demonstrates appropriate compressibility and waveform variability. The deep femoral vein demonstrates appropriate compressibility and waveform variability. The popliteal vein demonstrates appropriate compressibility and waveform variability. 5.1 x 3.2 x 0.8 cm right manley cyst LEFT SIDE: The common femoral vein demonstrates appropriate compressibility and waveform variability. There is compressibility/patency of the great saphenous vein at the proximal thigh. The femoral vein demonstrates appropriate compressibility and waveform variability. The deep femoral vein demonstrates appropriate compressibility and waveform variability. The popliteal vein demonstrates appropriate compressibility and waveform variability. IMPRESSION: 1. No right or left femoropopliteal venous thrombosis. 2. Right manley cyst. EXAMINATION: MRI BRAIN HEAD WO CONTRAST INDICATION: CVA COMPARISON: CT ANGIO HEAD/NECK on DOS: 11/07/25 TECHNIQUE: Multiplanar, multisequence magnetic resonance imaging of the brain was performed without the use of intravenous contrast. FINDINGS: Diffusion-weighted images demonstrate small foci of acute infarct within the high left parietal lobe. Punctate focus of acute ischemia within the left parietal lobe. There is periventricular/deep white matter T2/FLAIR hyperintensity which is nonspecific, but most commonly associated with chronic microvascular disease. Probable lipoma within the left quadrigeminal cistern. There are global involutional changes with compensatory prominence of the ventricles and sulci. Flow voids in the major intracranial vessels are maintained. Bilateral lens implants. Paranasal sinuses and mastoid air cells are clear. No abnormality of the visualized osseous structures and extracranial soft tissues. IMPRESSION: 1. Small foci of acute ischemia within the high left parietal lobe. 2. Age-related involutional changes. Chronic microvascular changes. PROCEDURE: MRI LUMBAR SPINE WO CONTRAST INDICATION: Myelopathy, COMPARISON: None TECHNIQUE: Multiplanar multisequence images of the the lumbar spine are obtained. FINDINGS: For the purpose of this examination, there are 5 lumbar vertebral body types counting from the lumbosacral junction. Lumbar vertebral body heights are maintained. Moderate multilevel disc space narrowing and desiccation. No abnormal marrow edema. There is 4 mm anterolisthesis of L4 upon L5. The conus terminates at the level of the L1 vertebral body level. T12-L1: Tiny disc protrusion. Mild facet and flavum hypertrophy. No spinal canal, neural foraminal stenosis. L1-2: Tiny disc protrusion. Mild facet and flavum hypertrophy. No spinal canal stenosis. Moderate left and mild right neural foraminal stenosis. L2-3: 2 mm disc protrusion. Mild facet and flavum hypertrophy. No spinal canal stenosis. Mild bilateral neural foraminal stenosis. L3-4: 2 mm disc protrusion. [id number]-[id number] facet and flavum hypertrophy. No spinal canal stenosis. Mild bilateral neural foraminal stenosis. L4-5: 4 mm anterolisthesis L4 upon L5. Htnq-dt-fhzbjimi facet and flavum hypertrophy. No spinal canal stenosis. Severe bilateral neural foraminal stenosis. Small to moderate bilateral facet joint effusions, gknz-[id number]-right. L5-S1: 2 mm disc protrusion. Mild facet and flavum hypertrophy. No spinal canal stenosis. Hmao-pa-gwwwfhel bilateral neural foraminal stenosis IMPRESSION: Moderate lumbar degenerative disc disease. 4 mm anterolisthesis L4 upon L5. Severe neural foraminal stenosis at L4-5. Rtfb-ji-wyzckrzw neural foraminal stenosis of the remaining lumbar levels. No high-grade spinal canal stenosis. CHEST RADIOGRAPH INDICATION: sob TECHNIQUE: Single frontal view of the chest was obtained COMPARISON: None FINDINGS: Lines and Tubes: None Lungs: No focal consolidation. Pleura: No effusion. No pneumothorax. Cardiomediastinal contours: Unremarkable Bones: No acute osseous abnormality. IMPRESSION: 1. No acute cardiopulmonary disease. CLINICAL INDICATION: s/p fall TECHNIQUE: 3 radiographic views of the right foot were obtained. COMPARISON: None FINDINGS/IMPRESSION: Metallic toe ring on the right 3rd toe. No fractures or dislocations visible. Condition at Discharge: Undetermined Final Diagnosis/Problems List Bilateral pulmonary embolism DVT ruled out Possible PFO Acute ischemic stroke with right sided lower extremity weakness Severe neural foraminal stenosis Hypertension Hyperlipidemia Anxiety/depression Essential tremor Morbid obesity, BMI 40.1 kg/m2 Discharge Disposition: AMA Discharge Instruct/Medications Diet: Cardiac 2g Na,low cholest Activity: Light activity Follow Up/Referral: Follow up with PCP Dr. Ding Medications: Per EMR Scheduled Apixaban Base (Eliquis), 5 MG PO BID Aspirin (Aspir-81), 81 MG PO DAILY Atorvastatin Calcium (Atorvastatin Calcium), 40 MG PO HS Gabapentin (Gabapentin), 600 MG PO DAILY, (Reported) Levofloxacin Hemihydrate (Levofloxacin), 500 MG PO DAILY, (Reported) Losartan Potassium (Losartan Potassium), 50 MG PO DAILY Metoprolol Succinate (Toprol Xl), 25 MG PO DAILY Discharge Statement: "Patient was advised to return to the ER or call 911 if any headaches, dizziness, shortness of breath, chest pain, abdominal pain, bleeding, fevers, or worsening of medical condition. Patient was counseled about treatment plan, medications, possible side effects, patientverbalized understanding. All questions were answered to the best of my ability. This discharge took greater then 30 minutes in planning, reviewing documentation, counseling the patient, and discussing with other team members." DME: Diagnosis: Acute ischemic stroke with right sided residual deficits, recommended by PT ASSESSMENT ASSESSMENT Assessment Acute Bilateral PE Visit Coding STANDARD RES Billing Provider: CAROLINE KWONG MD Date of Service if different f: Nov 19, 2025 Common Visit Codes: 25362-IPS/OBS DISCH DAY >30min DORIAN GRIFFIN RESIDENT Nov 19, 2025 19:02 CAROLINE KWONG MD Nov 20, 2025 14:51
== END 2025-11-19 16:20 | disposition home or self-care (01) | DRG 64 ==
LOC: EDBD 20:34 → ER 20:34 → OVERFLOW 11-07 05:38 → TELE-WESTW 11-07 05:42 → WEST WING 11-12 20:33
PROVIDERS: ADMIT Student in an Organized Health Care Education/Training Program; ATTEND Student in an Organized Health Care Education/Training Program
PROC: B24BZZZ Ultrasonography of Heart with Aorta (ICD-10-PCS; principal; 2025-11-07)
PROC: B24BZZ4 Ultrasonography of Heart with Aorta, Transesophageal (ICD-10-PCS; 2025-11-12)
DX: I63.9 Cerebral infarction, unspecified (principal); I26.99 Other pulmonary embolism without acute cor pulmonale; Z68.41 Body mass index [BMI] 40.0-44.9, adult; F32.A Depression, unspecified; G83.11 Monoplegia of lower limb affecting right dominant side; I47.10 Supraventricular tachycardia, unspecified; M47.14 Other spondylosis with myelopathy, thoracic region; Q21.12 Patent foramen ovale; M51.06 Intervertebral disc disorders with myelopathy, lumbar region; D72.829 Elevated white blood cell count, unspecified; F41.9 Anxiety disorder, unspecified; I45.9 Conduction disorder, unspecified; G25.0 Essential tremor; I95.1 Orthostatic hypotension; E78.5 Hyperlipidemia, unspecified; E66.01 Morbid (severe) obesity due to excess calories; Z91.018 Allergy to other foods; Z79.899 Other long term (current) drug therapy; Z90.710 Acquired absence of both cervix and uterus; Z82.49 Family history of ischemic heart disease and other diseases of the circulatory system; Z82.0 Family history of epilepsy and other diseases of the nervous system; Z80.3 Family history of malignant neoplasm of breast; Z86.718 Personal history of other venous thrombosis and embolism
CPT/HCPCS: 36415; 70450; 70496; 70498; 70551; 71045; 72148; 73560; 73630; 80048; 80053; 80061; 80307; 81001; 83036; 83605; 83735; 83880; 84132; 84484; 85025; 85610; 85613; 85670; 85705; 85730; 85732; 86850; 86900; 86901; 93005; 93306; 93312; 93926; 93970; 97110; 97116; 97163; 97530; 99152; G0378; J2250